=== PATIENT | female | born 1970 | race Caucasian/White ===

== ENCOUNTER 2019-09-23 13:19 | Outpatient (CLI) | payer OTHER, SELFPAY ==
--- NOTE | ~2019-09-23 | US_ITS ---
. EXAMINATION: US FNA w image guidance DATE: 09/23/2019 14:14 INDICATION: Nontoxic single thyroid nodule. TECHNIQUE: The procedure and its benefits, risks, and benefits were discussed with the patient. Risks specifical ly discussed included bleeding. The patient verbalized understanding of the risks and agreed to proce ed. The neck was prepped and draped in the usual sterile manner. 1% lidocaine was used for local ane sthesia. 5 passes were made with a 25G needle into the lesion. Appropriate needle location was docu mented with continuous sonographic guidance. There were no immediate complications. The patient unde rstood to call the ordering physician for results after a week and a half and verbalized that underst anding. FINDINGS: Grayscale ultrasound images demonstrate needles advanced into a 2.4 cm right thyroid nodule for biops y. IMPRESSION: 1. Ultrasound-guided fine needle aspiration of a right thyroid nodule. Reviewed, dictated and finalized at location A. OF MUSIC
== END 2019-09-23 13:20 | disposition home or self-care (01) ==
PROVIDERS: PCP Physician Assistant; Visit Provider Internal Medicine Endocrinology, Diabetes & Metabolism
DX: E04.1 Nontoxic single thyroid nodule (principal)
CPT/HCPCS: 10005; 88108; 88173; 88305

== ENCOUNTER 2019-11-01 07:14 | Observation (INO) | payer OTHER, SELFPAY ==
[2019-11-01] VITALS (13 sets, daily range): BP systolic 98–139; BP diastolic 71–95; PULSE 60–82; RESP 16–22; TEMP 36.4–36.7; O2SAT 94–100; BMI 32.2
--- NOTE | ~2019-11-01 | CT_ITS ---
EXAMINATION: CTA chest DATE: 11/01/2019 08:48 INDICATION: Chest pain. Shortness of breath. TECHNIQUE: Computed tomography angiography (CTA) of the chest was performed with 100 mL Omnipaque-350 intravenous contrast timed to evaluate the pulmonary arteries. Coronal maximum intensity projection 3D-reconstructions were created by the technologist. Automated exposure control and iterative reconst ruction technique were employed. The dose-length product was 506.12 mGy-cm. COMPARISON: CT abdomen and pelvis 08/31/2016 FINDINGS: There is mild emphysema. There are scattered areas of mild atelectasis in the lungs. Calcif ied pulmonary nodules and calcified hilar lymph nodes are consistent with old granulomatous disease. There is an 8 mm nodule in left upper lobe, stable from 08/31/2016. There is a 6 mm nodule in lingula, stable from 08/31/2016. There is a 5 mm nodule in right upper lobe not included on the prior CT. No p leural effusion. The heart size is normal. No pericardial effusion. There is no pulmonary embolus. Th ere is ectasia of ascending aorta measuring 4.4 cm. There is noncalcified right hilar lymphadenopathy measuring up to 1.9 x 1.6 cm. There is mild thoracic spondylosis. IMPRESSION: 1. No pulmonary embolus. 2. Ectasia of ascending aorta measuring 4.4 cm. 3. Pulmonary nodules, likely benign. 4. Mild emphysema. 5. Mild right hilar lymphadenopathy, likely reactive. Reviewed, dictated and finalized at location A.
--- NOTE | ~2019-11-01 | XR_ITS ---
EXAMINATION: XR chest 2V EXAM DATE: 11/01/2019 07:49 INDICATION: Chest pain mid to left-sided. Posterior chest pain and neck pain. TECHNIQUE: Frontal and lateral projections of the chest obtained and reviewed. There is no prior maia dy for comparison. FINDINGS: Some scattered linear right lung opacities appearance most consistent with atelectasis. No confluent consolidation, pneumothorax or pleural effusion suspected. Cardiomediastinal silhouette is normal. There are mild bony degenerative changes. IMPRESSION: Scattered linear right lung opacities most consistent with atelectasis. Reviewed, dictated and finalized at location B. IMPRESSION: Scattered linear right lung opacities most consistent with atelecta sis.
--- NOTE | 2019-11-01 07:25 | ECG_ITS ---
Measurements Intervals [place] Rate: 78 P: 45 CO: 169 QRS: -31 QRSD: 85 T: 32 QT: 379 QTc: 434 Interpretive Statements SINUS RHYTHM MARKED LEFT AXIS DEVIATION POOR R WAVE PROGRESSION, ANTERIOR LEADS BORDERLINE ST-T WAVE ABNORMALITY- DIFFUSE LEADS BASELINE ARTIFACT- I, III, AVL, AVF BORDERLINE ECG Electronically Signed On 11-01-2019 7:41:21 CDT by Lucas Ramirez D.O.
[2019-11-01 07:33] LABS: Basophils Absolute Auto 0.1 K/mm3 (0.0-0.1); Basophils Percent Auto 0.5 % (0.2-1.2); Eosinophils Percent Auto 0.1 % (0-4.4); Immature Granulocyte Absolute 0.02 K/mm3 (0.00-0.031); Immature Granulocyte Percent A 0.2 % (0-0.5); Lymphocytes Percent Auto 29.1 % (18.3-44.2); Mean Corpuscular HGB Conc 31.8 g/dl (32-36); Mean Corpuscular Hemoglobin 30.4 pg (26-34); Mean Corpuscular Volume 95.4 fl (80-100); Mean Platelet Volume 9.7 fl (7.4-10.4); Monocytes Absolute Auto 0.9 K/mm3 (0.1-0.6); Monocytes Percent Auto 7.4 % (2.6-8.5); Neutrophils Absolute Auto 7.3 K/mm3 (1.3-6.7); Neutrophils Percent Auto 62.7 % (45.5-73.1); Platelet Count Result 329 k/mm3 (150-375); Red Blood Count 4.61 M/mm3 (4.2-5.4); Red Cell Distribution Width 13.6 % (11.5-14.5); White Blood Count 11.7 K/mm3 (4.5-10.0)
[2019-11-01] MEDS: ASPIRIN 81 MG CHEWABLE TABLET 324 MG PO (07:35)
--- NOTE | 2019-11-01 07:35 | ED.CHESTPAIN ---
HPI - Chest Pain General Chief Complaint: Chest Pain Stated Complaint: CP Time Seen by Provider: 11/01/19 07:23 Source: patient Mode of arrival: ambulatory Limitations: no limitations History of Present Illness HPI narrative: 48 yo female smoker who presents with c/o chest heaviness. Patient states that she develop chest heaviness across her upper chest 1 hour ago. She states she tried to lay back down but her pain was too severe. She also reports her pain has moved to her neck and across her shoulder blade. Patient states it hurts to take a breath and she is having sob. She reports chronic cough due to her being a smoker. She denies nausea, vomiting , fever, diaphoresis or dizziness. She denies prior cardiac history . She was evaluated by a erector operator 5 years ago for a clot in her spleen. MD complaint: chest heaviness Onset (ago): hour(s) Timing of current episode: constant and still present Prior episodes: No Onset: awoke with symptoms Pain location: parasternal Pain radiation: neck Severity: severe Pain scale (0-10): 8 Quality: heaviness Relieving factors: nothing Exacerbating factors: inspiration Risk Factors Coronary artery disease risk factors: smoking history Related Data Home Medications Medication Instructions Recorded Confirmed cholecalciferol (vitamin D3) 25 25 mcg PO DAILY 09/18/19 11/01/19 mcg (1,000 unit) chewable tablet cyanocobalamin (vitamin B-12) 1,000 mcg PO DAILY 09/18/19 11/01/19 1,000 mcg capsule Alive Women's Gummy Vitamin 1 tablet PO DAILY 11/01/19 11/01/19 elderberry fruit and flower 1 cap PO DAILY 11/01/19 11/01/19 flaxseed oil-omega 3,6,9 1 cap PO DAILY 11/01/19 11/01/19 Allergies Allergy/AdvReac Type Severity Reaction Status Date / Time shellfish derived Allergy Mild Nausea Verified 11/01/19 11:29 hydrocodone [From Vicodin] AdvReac Mild Nausea Verified 11/01/19 11:30 morphine AdvReac Mild Nausea Verified 11/01/19 11:28 Review of Systems Review of Systems: All systems reviewed & are unremarkable except as noted in HPI and below Constitutional: Constitutional: Denies chills, Denies fever(s) and Denies weakness ENT: Denies nasal congestion and Denies sore throat Cardiovascular: Cardiovascular: Reports chest pain, Denies rapid heart rate and Denies radiating jaw, neck or arm pain Gastrointestinal: Gastrointestinal: Denies abdominal pain, Denies diarrhea, Denies nausea and Denies vomiting Musculoskeletal: Musculoskeletal: Reports back pain PMFSH Past Medical History Medical History Blood clot in abdominal vein section wound complications Exploratory laparotomy scar Surgical History Surgical History H/O: hysterectomy History of tubal ligation Social History Social History Smoking packs per day: 1 Smoking cigarettes per day: 20.0 Years smoked: 35 Smoking pack-years: 35.00 Smoking status: Current every day smoker Tobacco type: cigarettes Second hand tobacco smoke exposure: Yes Alcohol intake: current Substance use: never Substance use type: does not use Gender identity (if verbalized by the patient): Female Spiritual care concerns: No Agree to blood products: Yes Exam Narrative: Exam Narrative: GENERAL: Well-appearing, well-nourished, and in no acute distress. HEAD: Normocephalic, atraumatic EYES: PERRLA and EOMI, conjunctiva clear without discharge THROAT:Mucous membranes moist, Oropharynx normal without erythema, exudate, peritonsillar swelling or fluctuance NECK: Supple, without lymphadenopathy or mass RESPIRATORY: No respiratory distress, Airway patent, Respirations non-labored, Clear to auscultation without rales, rhonchi or wheeze HEART: Regular rate and rhythm. No murmur heard. Normal peripheral pulses. ABDOMEN: Soft, nontender, nondistended, rudy
--- NOTE | 2019-11-01 07:43 | PC.NURSE ---
Called lab for d-dimer add on.
[2019-11-01 07:44] LABS: Blood Urea Nitrogen 12 mg/dL (7-17); Calcium 8.8 mg/dL (8.4-10.2); Carbon Dioxide 28 mmol/L (22-30); Chloride 106 mmol/L (98-107); Estimated CRCL calculation 112 ml/min; Estimated Glomerular Filt Rate > 60; Glucose 126 mg/dL (65-105); INR 0.9; Prothrombin Time 11.5 Seconds (11.1-14.7); Sodium 139 mmol/L (137-145)
[2019-11-01 07:47] LABS: D Dimer 0.46 ug/mL (<0.48)
[2019-11-01] MEDS: NITROGLYCERIN SL 0.4 MG TABLET SUBLINGUAL (07:50)
--- NOTE | 2019-11-01 07:55 | PC.NURSE ---
Patient rates pain 5/10 after first dose of nitro. Given second dose 0.4 mg SL at this time. BP 117/73.
[2019-11-01 07:56] LABS: Troponin I < 0.012 ng/mL (0.000-0.034)
--- NOTE | 2019-11-01 08:00 | PC.NURSE ---
Patient reports pain 5/10 after second dose of nitro. 3rd dose given at this time (0.4 mg given SL). CO 82 RR 25 pulse ox 96% and BP 113/75.
[2019-11-01] MEDS: ALBUTEROL SULFATE NEB 2.5 MG/0.5 ML INH 5 MG INHALATION (09:58)
[2019-11-01] MEDS: IPRATROPIUM BR 0.02% INH SOLN 0.5 MG/2.5 ML VIAL INHALATION (09:58)
--- NOTE | 2019-11-01 11:00 | PC.NURSE ---
This patient, Nidia Clinton, was admitted to IMU Room 203-01. Patient/family oriented to hospital policies and general routines including ID bracelet, bed and alarms, visiting hours, pain management, procedures, bathroom and other care routines, personal items, smoking policy, room service/diet, and visiting hours. Valuables list has been completed. Information on how to activate the Rapid Response Team has been discussed. Patient/Family are encouraged to report perceived risks to care and to ask questions if they do not understand what they are told or what they should do.
[2019-11-01 11:09] LABS: Troponin I < 0.012 ng/mL (0.000-0.034)
--- NOTE | 2019-11-01 13:18 | PM.CNCAR ---
Assessment and Plan Additional Plan 48-year-old lady with history of abrupt onset of chest pain this morning has a pleuritic quality to it. There is no ECG evidence to suggest acute pericarditis. Her ECG and biomarkers thus far are negative for evidence of acute coronary syndrome. The 3rd troponin level is pending She has a history of some sort of hypercoagulable disorder records of that are of not available here at [facility] evaluation was not conducted here. This makes it even more important for this lady that she stopped cigarette smoking If her 3rd troponin level is negative she can be discharged for follow-up with her PCP Sherwin Vega MD [facility] History of Present Illness History of Present Illness Consult date/time: Date of service: 11/01/19 13:18 Consult reason: chest pain Reason For Visit: chest pain/emphysema Narrative: This is a 48-year-old female who I have not seen previously and I am asked to see today at the request of the hospitalist's because of chest pain. The patient does not have any prior history of known cardiac problems and began to abruptly experience chest pain this morning while she was at home and her was a getting ready to go to work. She states that she suddenly noted the onset of relatively severe pain and was in the precordial region to the right side of midline the pain was an aching sensation that was 8 to 9/10 on intensity scale and was relatively alarming to her because of its abrupt onset. She then started to noticed a sense of some sweatiness and so her was awakened and she was brought to the emergency room for evaluation. When the pain was relatively severe she did notice that it would improve if she would sit in the upright position in lean forward. It was made worse by deep breathing or coughing. The discomfort seemed eager to gradually subside on its own she was given series of nitroglycerin tablets in the emergency room which she does not think really had much effect on the symptom that she could recall her electrocardiogram did not show any changes of acute ischemia or injury. Troponin levels were negative. Her 2nd troponin sample which was done appear in the intermediate care unit is also normal. In this setting of seeing her in consultation. The patient does state that she was evaluated by a breakfast manager in the [facility] in [place] a few years ago after she had some significant left upper quadrant abdominal pain. 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 This triggered a hematology evaluation and she does indicate that she was found to have some sort of hypercoagulable disorder but she can't remember the specific diagnosis. She did state of course that her detective sergeant told her that she should discontinue cigarette smoking but she has not done that. She said that for about 3 months after that event she was on Xarelto for systemic anticoagulation and then that was discontinued. Her cardiac evaluation consisted at least of an echocardiogram she can't remember anything else that might of been done which was told that her heart appeared to otherwise be is stable without any evidence of separate cardiac problems. 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 Review of Systems Constitutional: Constitutional: Reports no additional constitutional complaints Eyes: Eyes: Reports no additional eye complaints Cardiovascular: Cardiovascular: Reports as per HPI Respiratory: Respiratory: Reports no additional respiratory complaints Gastrointestinal: Gastrointestinal: Reports no additional gastrointestinal complaints Musculoskeletal: Musculoskeletal:
[2019-11-01 13:53] LABS: Alanine Aminotransferase 14 U/L (4-35); Alkaline Phosphatase 53 U/L (38-126); Aspartate Amino Transferase 21 U/L (14-36); Bilirubin,Total 0.5 mg/dL (0.2-1.3)
[2019-11-01 14:05] LABS: Troponin I < 0.012 ng/mL (0.000-0.034)
--- NOTE | 2019-11-01 14:29 | PM.IMHP ---
H&P: HPI History of Present Illness Chief complaint: chest pain/emphysema Narrative: Date of visit 10-31 raya Clinton is a 48 year old female smoker who states that shortly after rising approximately 6:30 a.m. developed substernal achy pressure sensation that is to her back across her shoulders and neck. Pain seems somewhat better when she leaned forward at times will rising to the hospital and worsens with deep inspiration. To me she related that she had no associated symptoms of nausea are shortness of breath but apparently told the ER P that she had had shortness of breath. She does smoke about a pack cigarettes a day and has over 30 pack year history. No other risk factors to her knowledge and is adopted so she is not sure about her biologic parents medical history. 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 Review of Systems Review of Systems: Narrative: Constitutional with steady appetite good Eye no double vision or scotoma Mouth no pharyngitis or laryngitis Pulmonary no increased shortness breath wheezing or cough CV as per present illness no palpitations or pedal edema GI no melena hematochezia. She has had a history of reflux but states at present illness with totally different Extremities without edema Neuro alert pleasant cooperative no focal deficits Integument no skin breakdown or rashes PMFSH Past Medical History Medical History Blood clot in abdominal vein section wound complications Exploratory laparotomy scar Surgical History Surgical History H/O: hysterectomy History of tubal ligation Social History Social History Smoking packs per day: 1 Smoking cigarettes per day: 20.0 Years smoked: 35 Smoking pack-years: 35.00 Smoking status: Current every day smoker Tobacco type: cigarettes Second hand tobacco smoke exposure: Yes Alcohol intake: current Substance use: never Substance use type: does not use Gender identity (if verbalized by the patient): Female Spiritual care concerns: No Agree to blood products: Yes Meds Home Medications and Allergies Home Medications Medication Instructions Recorded Confirmed Type cholecalciferol (vitamin D3) 25 25 mcg PO DAILY 09/18/19 11/01/19 History mcg (1,000 unit) chewable tablet cyanocobalamin (vitamin B-12) 1,000 mcg PO DAILY 09/18/19 11/01/19 History 1,000 mcg capsule elderberry fruit and flower 1 cap PO DAILY 11/01/19 11/01/19 History flaxseed oil-omega 3,6,9 1 cap PO DAILY 11/01/19 11/01/19 History [id number] 1 tablet PO DAILY 11/01/19 11/01/19 History [Alive Women's Gummy Vitamin] Allergies Allergy/AdvReac Type Severity Reaction Status Date / Time shellfish derived Allergy Mild Nausea Verified 11/01/19 11:29 hydrocodone [From Vicodin] AdvReac Mild Nausea Verified 11/01/19 11:30 morphine AdvReac Mild Nausea Verified 11/01/19 11:28 Vital Signs Vital Signs - 24 hr 11/01/19 07:17 11/01/19 07:27 11/01/19 07:50 Temperature 36.4 C Pulse Rate 77 73 69 Respiratory Rate 18 21 H Blood Pressure 139/95 H 123/91 H Pulse Oximetry 97 98 11/01/19 07:54 11/01/19 08:07 11/01/19 08:52 Temperature Pulse Rate 78 82 65 Respiratory Rate 22 H 18 18 Blood Pressure 117/73 106/71 98/75 L Pulse Oximetry 96 96 100 11/01/19 09:59 11/01/19 10:05 11/01/19 10:49 Temperature Pulse Rate 65 69 74 Respiratory Rate 20 22 H 16 Blood Pressure 114/81 Pulse Oximetry 94 11/01/19 11:35 11/01/19 12:00 11/01/19 13:33 Temperature 36.7 C Pulse Rate 60 72 68 Respiratory Rate 20 18 Blood Pressure 127/75 Pulse Oximetry 99 96 Exam Narrative: Exam Narrative: Blood pressure 126/74 pulse 60 and regular afebril
--- NOTE | 2019-11-01 18:09 | PM.DS ---
DS: Diagnosis Admitting Diagnosis Admitting Diagnosis: Chest pain, unspecified Discharge Diagnosis (1) Chest pain: Qualifiers: Chest pain type: unspecified Qualified Code(s): R07.9 - Chest pain, unspecified Code(s): R07.9 - Chest pain, unspecified Status: Acute Assessment and Plan: The chest pressure is suggestive of anginal pain but the pain way was long-lasting and not relieved with nitroglycerin. And also worsened with deep inspiration and alleviated somewhat with leaning forward but no evidence of pericarditis on EKG. Was encouraged to rest and use ibuprofen 2-400 mg 3 to 4 times a day Follow-up with primary care and if symptoms persist ,echo and possible stress testing Seen by cardiology who felt that was low probability of any ischemic chest pain with her history. Troponins were negative x3 CTA no emboli with mild emphysema in 3 5-8 mm nodules that were essentially unchanged from CT scan of 2017 (2) Emphysema lung: Qualifiers: Emphysema type: unspecified Qualified Code(s): J43.9 - Emphysema, unspecified Code(s): J43.9 - Emphysema, unspecified Status: Acute Assessment and Plan: Seen on CT scan. Encouraged to stop smoking (3) Smoker: Code(s): F17.200 - Nicotine dependence, unspecified, uncomplicated Status: Acute Assessment and Plan: As above especially with her previous thrombus encouraged her to stop smoking. DS: Summary Hospital Course Hospital Course: 48-year-old white female who shortly after arising in the morning developed substernal pressure sensation radiated to her back and her neck. Will consider her who brought her to the emergency room for evaluation. She notice it when she leaned forward pain was better and aggravated by deep inspiration. To given nitroglycerin in the emergency room without relief. EKG showed nonspecific changes and troponins were negative x3. CTA of the chest showed no dissection or pulmonary emboli. She was discharged with a presumptive diagnosis of possible mild pericarditis with her symptomatology as such but no findings on EKG. She is instructed use ibuprofen 2-400 mg p.o. 4 times a day and follow-up with her primary care for possible echo and are stress test as symptoms persisted or recurred Time Spent with Patient Time attestation: Total time spent providing and/or coordinating discharge services: 35 minutes Exam Narrative: Exam Narrative: Condition on discharge Blood pressure 126/74 pulse is 72 Lungs clear CV regular rate and rhythm no murmurs or rubs Abdomen is soft nontender no masses Extremities without edema distal pulses are 2+ Neuro alert no focal deficits DS: Data Data Completed and Pending Labs on day of discharge: Labs from last 24 hours 11/01/19 11/01/19 11/01/19 13:25 13:25 10:36 WBC RBC Hgb Hct MCV MCH MCHC RDW Plt Count MPV Immature Gran % (Auto) Neut % (Auto) Lymph % (Auto) [place] % (Auto) Eos % (Auto) Baso % (Auto) Lymph # (Auto) [place] # (Auto) Eos # (Auto) Baso # (Auto) Abs Immat Gran (auto) Absolute Neuts (auto) Absolute Nucleated RBC Nucleated RBC % PT INR APTT D-Dimer Sodium Potassium Chloride Carbon Dioxide BUN Creatinine Estim Creat Clear Calc Estimated GFR Glucose Calcium Total Bilirubin 0.5 Direct Bilirubin 0.0 AST 21 ALT 14 Alkaline Phosphatase 53 Troponin I < 0.012 < 0.012 Total Protein 7.0 Albumin 4.0 11/01/19 11/01/19 11/01/19 07:28 07:28 07:28 WBC 11.7 H RBC 4.61 Hgb 14.0 Hct 44.0 MCV 95.4 MCH 30.4 MCHC 31.8 L RDW 13.6 Plt Count 329 MPV 9.7 Immature Gran % (Auto) 0.2 Neut % (Auto) 62.7 Lymph % (Auto) 29.1 [place] % (Auto) 7.4 Eos % (Auto) 0.1 Baso % (Auto) 0.5 Lymph # (Auto) 3.40 H [place] # (Auto) 0.9 H Eos # (Auto) 0.0
== END 2019-11-01 16:40 | disposition home or self-care (01) ==
LOC: ANHED 10:18 → ANHIMU 11:04
PROVIDERS: Admitting Provider Internal Medicine; Emergency Provider General Practice; PCP Physician Assistant; Visit Provider Internal Medicine
DX: R07.9 Chest pain, unspecified (principal); J43.9 Emphysema, unspecified; F17.210 Nicotine dependence, cigarettes, uncomplicated
CPT/HCPCS: 36415; 71046; 71275; 80048; 80076; 84484; 85025; 85380; 85610; 85730; 93005; 94640; 99285; A9270; G0378; Q9967

== ENCOUNTER → 2020-08-19 10:53 | Outpatient (CLI) | payer OTHER, SELFPAY ==
--- NOTE | ~2020-08-19 | MM_ITS ---
EXAMINATION: MM screening [facility] BI w nash HISTORY: Screening TECHNIQUE: Craniocaudal and mediolateral oblique 3-D tomosynthesis images were obtained and synthetic 2-D images were generated. CAD analysis was submitted and interpreted. COMPARISON: Comparison to multiple prior studies sequentially, with oldest reviewed study dated 12/2015. BREAST PARENCHYMAL COMPOSITION: Breast composed of scattered areas of fibroglandular density. FINDINGS: There are developing asymmetries in the upper outer quadrant of the right breast and latera l aspect of the left breast. There are no suspicious calcifications. IMPRESSION: 1. Developing bilateral breast asymmetries. 2. Additional mammographic views and possible breast ultrasound are recommended. BI-RADS Category 0: Incomplete: Needs additional imaging evaluation. Reviewed, dictated and finalized at location A. PUMPER IMPRESSION: 1. Developing bilateral breast asymmetries. 2. Additional mammographic views and possible breast ultrasound are recommended . BI-RADS Category 0: Incomplete: Needs additional imaging evaluation.
== END ==
PROVIDERS: PCP Physician Assistant; Visit Provider Nurse Practitioner
DX: Z12.31 Encounter for screening mammogram for malignant neoplasm of breast (principal); R92.8 Other abnormal and inconclusive findings on diagnostic imaging of breast
CPT/HCPCS: 77063; 77067

== ENCOUNTER → 2020-09-09 08:18 | Outpatient (CLI) | payer OTHER, SELFPAY ==
--- NOTE | ~2020-09-09 | MMUS_ITS ---
EXAMINATION: MM diagnostic mammo BI, US breast BI limited HISTORY: Developing bilateral breast mammographic asymmetries reported on 08/19/2020 bilateral digita l screening mammogram examination TECHNIQUE: Additional 3-D tomosynthesis images of both breasts were performed and synthetic 2-D image s were generated. CAD analysis was submitted and interpreted. High resolution right upper outer quadr ant breast ultrasound and left upper outer and lower-outer quadrants breast ultrasound was performed. COMPARISON: 08/19/2020 bilateral digital screening mammogram FINDINGS: MAMMOGRAPHIC FINDINGS: Probable bilateral small benign appearing circumscribed intramammary lymph nodes. No suspicious mass or architectural distortion, malignant calcification, skin thickening or retractio n is evident. ULTRASOUND: No suspicious mass or shadowing is evident in the upper outer quadrant of the right breast or lateral half left breast. IMPRESSION: 1. No mammographic evidence of malignancy 2. Routine annual mammographic screening is recommended. BI-RADS Category 2: Benign finding(s). Reviewed, dictated and finalized at location A. 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 No mammographic evidence of malignancy 2. Routine annual mammographic screening is recommended. BI-RADS Category 2: Benign finding(s).
== END ==
PROVIDERS: Visit Provider Obstetrics & Gynecology Gynecology
DX: R92.8 Other abnormal and inconclusive findings on diagnostic imaging of breast (principal)
CPT/HCPCS: 76642; 77066

== ENCOUNTER → 2021-09-11 09:06 | Outpatient (CLI) | payer OTHER, SELFPAY ==
--- NOTE | ~2021-09-11 | MM_ITS ---
EXAMINATION: MM screening [facility] BI w nash HISTORY: Screening mammogram TECHNIQUE: Craniocaudal and mediolateral oblique 3-D tomosynthesis images were obtained and synthetic 2-D images were generated. CAD analysis was submitted and interpreted. COMPARISON: 09/09/2020, 08/19/2020, 08/12/2019 BREAST PARENCHYMAL COMPOSITION: There are scattered areas of fibroglandular density. FINDINGS: There is no evidence of suspicious mass, calcification, or architectural distortion to sugg est malignancy in either breast. There has been no suspicious interval change. IMPRESSION: 1. No mammographic evidence of malignancy. 2. Recommend routine screening mammography in one year. BI-RADS Category 1: Negative Reviewed, dictated and finalized at location A. [employer]
--- NOTE | ~2021-09-11 | DEXA_ITS ---
Bone Density Report Name: JOY MOSQUERA Age: 50 Sex: Female Ethnicity: White Date of : 1970 Indication: postmenopausal; screening for osteoporosis; hysterectomy; Referring Provider: Hermann, Jenifer Study: Bone densitometry was performed. Exam Date: September 11, 2021 Accession number: [id number] Bone Density: Region BMD T-score Z-score Classification AP Spine (L1-L4) 1.025 -0.2 0.6 Normal Femoral Neck (Left) 0.732 -1.1 -0.2 Osteopenia Total Hip (Left) 1.052 0.9 1.4 Normal Femoral Neck (Right) 0.848 0.0 0.8 Normal Total Hip (Right) 1.033 0.7 1.3 Normal Total Hip Mean 1.043 0.8 1.4 Normal World Health Organization criteria for BMD impression classify patients as: Normal (T-score at or above -1.0), Osteopenia (T-score between -1.0 and -2.5), or Osteoporosis (T-score at or below -2.5). 10-year Fracture Risk(1): Major Osteoporotic Fracture 4.4% Hip Fracture 0.4% Reported Risk Factors: [place] (), Neck BMD=0.732, BMI=32.7, smoking (1) FRAX(R) Version 3.08. Fracture probability calculated for an untreated patient. Fracture probability may be lower if the patient has received treatment. Clinical Information Provided by Patient: Smokes Has used the following medications: Vitamin D Has the following medical conditions: Hysterectomy Patient maximum height was 65.5 Menopause Age: 34 Drinks caffeinated beverages Onset of menses at age 10 Number of children 2 Impression: The patient has low bone mass, based on the Left Femoral Neck T-score. The patient has an estimated ten-year risk of hip fracture of 0.4% and an estimated ten-year risk of major fracture of 4.4%, based on the WHO FRAX algorithm. The patient has risk factors, including: smoking. Discussion: BONE DENSITY IS LOW AT ONE OR MORE SKELETAL SITES. This patient's lowest T-score is low at one or more skeletal sites. It meets the World Health Organization's (WHO) criteria for ?low bone mass? (T-score between -1.0 and -2.5). The patient's 10-year risk of fracture as calculated by FRAX is less than the threshold where pharmacological therapy is recommended by the National Osteoporosis Foundation (NOF). However, all treatment decisions require clinical judgment and consideration of individual patient factors, including patient preferences, comorbidities, previous drug use, risk factors not captured in the FRAX model (e.g., frailty, falls, vitamin D deficiency, increased bone turnover, interval significant decline in bone density) and possible under or overestimation of fracture risk by FRAX. The patient should follow a healthful lifestyle (good nutrition with adequate calcium and vitamin D, and appropriate weight-bearing exercise). Follow-Up: Consider repeating this study in 2 to 3 years to reassess this patient's status,
== END ==
PROVIDERS: PCP Physician Assistant; Visit Provider Nurse Practitioner
DX: Z12.31 Encounter for screening mammogram for malignant neoplasm of breast (principal); Z13.820 Encounter for screening for osteoporosis; M85.852 Other specified disorders of bone density and structure, left thigh
CPT/HCPCS: 77063; 77067; 77080

== ENCOUNTER → 2021-09-13 07:53 | Outpatient (CLI) | payer OTHER, SELFPAY ==
--- NOTE | ~2021-09-13 | CT_ITS ---
EXAMINATION: CT sinus wo con DATE: 09/13/2021 08:14 INDICATION: Chronic recurrent sinusitis TECHNIQUE: Computed tomography (CT) of the paranasal sinuses was performed without intravenous contra st. The dose-length product was 271.16 mGy-cm. Automated exposure control and iterative reconstructio n technique were employed. COMPARISON: None FINDINGS: There is mucosal thickening of the ethmoid sinuses. No air-fluid levels. No significant muc operiosteal reaction. The ostiomeatal units are patent. Mastoids are pneumatized. IMPRESSION: 1. Mild ethmoid sinus disease. Reviewed, dictated and finalized at location B. NESS SUPPORT ASSOCIATE
== END ==
PROVIDERS: PCP Physician Assistant; Visit Provider Physician Assistant
DX: J32.2 Chronic ethmoidal sinusitis (principal)
CPT/HCPCS: 70486

== ENCOUNTER → 2022-09-12 11:42 | Outpatient (CLI) | payer OTHER, SELFPAY ==
--- NOTE | ~2022-09-12 | MM_ITS ---
EXAMINATION: MM screening zackary BI w nash HISTORY: Screening mammogram TECHNIQUE: Craniocaudal and mediolateral oblique 3-D tomosynthesis images were obtained and synthetic 2-D images were generated. CAD analysis was submitted and interpreted. COMPARISON: 09/11/2021 bilateral screening mammogram: 09/09/2020 diagnostic bilateral mammogram and [place] bilateral breast ultrasound 08/19/2020, 08/12/2019 bilateral screening mammogram examinations BREAST PARENCHYMAL COMPOSITION: There are scattered areas of fibroglandular density. FINDINGS: Right breast: There is an approximately 6.9 mm possible new mass in the posterior mid to up per outer right breast; diagnostic right mammogram and right breast ultrasound examination are recomm ended. Left breast: There is no evidence of suspicious mass, calcification, or architectural distortion to s uggest malignancy in the left breast. There has been no suspicious interval change. IMPRESSION: 1. Possible approximately new 6.9 mm mass, posterior mid to upper right breast 2. Diagnostic right mammogram and right breast ultrasound examination are recommended BI-RADS Category 0: Incomplete: Needs additional imaging evaluation. Reviewed, dictated and finalized at location A. COIL CLEANER IMPRESSION: 1. Possible approximately new 6.9 mm mass, posterior mid to upper right breast 2. Diagnostic right mammogram and right breast ultrasound examination are recom mended BI-RADS Category 0: Incomplete: Needs additional imaging evaluation.
== END ==
PROVIDERS: PCP Physician Assistant; Visit Provider Nurse Practitioner
DX: Z12.31 Encounter for screening mammogram for malignant neoplasm of breast (principal); R92.8 Other abnormal and inconclusive findings on diagnostic imaging of breast
CPT/HCPCS: 77063; 77067

== ENCOUNTER → 2022-09-21 11:29 | Outpatient (CLI) | payer OTHER, SELFPAY ==
--- NOTE | ~2022-09-21 | MMUS_ITS ---
EXAMINATION: MM diagnostic zackary RT w nash, US breast RT limited HISTORY: Follow-up right breast mass TECHNIQUE: Additional 3-D tomosynthesis images of the right breast were performed and synthetic 2-D i mages were generated. CAD analysis was submitted and interpreted. High resolution Limited right breas t ultrasound was performed. COMPARISON: Comparison to multiple prior studies sequentially, with oldest reviewed study dated 07/21. BREAST PARENCHYMAL COMPOSITION: Breast composed of scattered areas of fibroglandular density FINDINGS: MAMMOGRAPHIC FINDINGS: Masses in the upper outer quadrant of the right breast posteriorly have central lucency with spot com pression views, most likely intramammary lymph nodes. No suspicious calcifications or architectural d istortion. ULTRASOUND: Limited right breast ultrasound: At 9:00, 5 cm from the nipple, there is an 8 mm intramammary lymph n ode. No suspicious masses to suggest malignancy. This likely does not correspond to the mammographic finding. IMPRESSION: 1. Probable benign findings of the right breast. 2. Recommend 6 month follow-up diagnostic right mammogram and ultrasound. BI-RADS category 3, probably benign findings. Reviewed, dictated and finalized at location A. MUNITION SUPERVISOR IMPRESSION: 1. Probable benign findings of the right breast. 2. Recommend 6 month follow-up diagnostic right mammogram and ultrasound. BI-RADS category 3, probably benign findings.
== END ==
PROVIDERS: PCP Obstetrics & Gynecology Gynecology; Visit Provider Obstetrics & Gynecology Gynecology
DX: R92.8 Other abnormal and inconclusive findings on diagnostic imaging of breast (principal)
CPT/HCPCS: 76642; 77061; 77065; G0279

== ENCOUNTER → 2023-03-27 07:47 | Outpatient (CLI) | payer OTHER, SELFPAY ==
--- NOTE | ~2023-03-27 | MMUS_ITS ---
EXAMINATION: MM diagnostic zackary RT w nash, US breast RT limited HISTORY: Six-month follow-up for probably benign right breast masses TECHNIQUE: Craniocaudal, mediolateral, and mediolateral oblique 3-D tomosynthesis images of the breas ts were performed and synthetic 2-D images were generated. CAD analysis was submitted and interpreted . High resolution limited right breast ultrasound was performed. COMPARISON: 09/21/2022, 09/12/2022, 09/11/2021, 09/09/2020, 08/19/2020 BREAST PARENCHYMAL COMPOSITION: There are scattered areas of fibroglandular density. FINDINGS: MAMMOGRAPHIC FINDINGS: No suspicious mass, calcification, or architectural distortion are identified to suggest malignancy. There has been no suspicious interval change. Stable intramammary lymph nodes are present in the uppe r outer quadrant of the breast. ULTRASOUND: There is a benign intramammary lymph node at the 9:00 location 5 cm from the nipple. No suspicious cy stic or solid mass is identified. IMPRESSION: 1. No mammographic or sonographic evidence of malignancy. 2. Recommend routine screening mammography, due in September 2023. BI-RADS Category 2: Benign finding(s). Reviewed, dictated and finalized at location A. IMPRESSION: 1. No mammographic or sonographic evidence of malignancy. 2. Recommend routine screening mammography, due in September 2023. BI-RADS Category 2: Benign finding(s).
== END ==
PROVIDERS: PCP Obstetrics & Gynecology Gynecology; Visit Provider Obstetrics & Gynecology Gynecology
DX: R92.8 Other abnormal and inconclusive findings on diagnostic imaging of breast (principal)
CPT/HCPCS: 76642; 77061; 77065; G0279

== ENCOUNTER 2024-02-01 03:47 | Day surgery (SDC) | payer OTHER, SELFPAY ==
[2024-02-01] MEDS: LACTATED RINGERS 1,000 ML 150 ML IV CONT (06:47)
[2024-02-01 06:49] VITALS: BP 104/77; PULSE 68; RESP 18; TEMP 36.1; O2SAT 99
--- NOTE | 2024-02-01 07:27 | WPDANESEPPF ---
Anes - Initial Pre Proc Eval Procedure: Operation Date: 02/01/24 08:00 Proposed Procedures p Screening Colonoscopy - Danilo Mcfarland MD Date/Time: 02/01/24 07:27 Surgeon: Danilo Mcfarland MD Pre Op Diagnosis: neoplasm screening Patient Data Age: 53 Gender: F Height: 1.7 m Weight: 84 kg Last Vital Signs Temp 97 F L 02/01/24 06:49 Pulse 68 02/01/24 06:49 Resp 18 02/01/24 06:49 BP 104/77 02/01/24 06:49 Pulse Ox 99 02/01/24 06:49 O2 Del Method Room Air 02/01/24 06:49 Allergies Allergy/AdvReac Type Severity Reaction Status Date / Time shellfish derived Allergy Mild Nausea Verified 02/01/24 06:48 hydrocodone [From Vicodin] AdvReac Mild Nausea Verified 02/01/24 06:48 morphine AdvReac Mild Nausea Verified 02/01/24 06:48 Home Medications Medication Instructions Recorded Confirmed Type cholecalciferol (vitamin D3) 25 25 mcg PO DAILY 09/18/19 01/18/24 History mcg (1,000 unit) chewable tablet cyanocobalamin (vitamin B-12) 1,000 mcg PO DAILY 09/18/19 01/18/24 History 1,000 mcg capsule elderberry fruit 460 mg-elderberry 1 cap PO DAILY 11/01/19 01/18/24 History flower 115 mg capsule flaxseed oil 1,300 mg-omega 3,6,9 1 cap PO DAILY 11/01/19 01/18/24 History 845 mg-117 mg-117 mg capsule rlcwkonc-kceg-dvsrg acid 200 1 tablet PO DAILY 11/01/19 01/18/24 History mcg-herbal no.293 37.5 mg chewable tablet (Alive Women's Gummy Vitamin) ascorbic acid (vitamin C) 500 mg 500 mg PO DAILY 03/23/20 01/18/24 History capsule biotin 300 mcg tablet 500 mcg PO DAILY 03/23/20 01/18/24 History vitamin E 200 unit capsule 200 unit PO DAILY 03/23/20 01/18/24 History lutein 20 mg capsule 20 mg PO DAILY 01/18/24 01/18/24 History paroxetine HCl 10 mg tablet 10 mg PO DAILY 01/18/24 01/18/24 History rosuvastatin 5 mg tablet 5 mg PO DAILY 01/18/24 01/18/24 History Patient hx anesthesia problems: none Family hx anesthesia problems: none Results Review: All pre-operative results and documents have been reviewed as part of the pre-operative evaluation. [facility] Past Medical History Medical History (Updated 11/01/19 @ 10:18 by Balbina Mann MD) Blood clot in abdominal vein section wound complications Exploratory laparotomy scar Surgical History Surgical History H/O: hysterectomy History of tubal ligation Family History Family History Other Adopted Social History Social History Smoking packs per day: 1 Smoking cigarettes per day: 20.0 Years smoked: 40 Smoking pack-years: 40.00 Smoking status: Current every day smoker Tobacco type: cigarettes Second hand tobacco smoke exposure: Yes Alcohol intake: never Substance use: never Substance use type: does not use Living arrangements: with family Gender identity (if verbalized by the patient): Female Spiritual care concerns: No Agree to blood products: Yes Anes - Eval Final PreProcedure Day of Procedure 02/01/24 07:27 Patient weight: obese Heart: regular rate and rhythm Lungs: clear to auscultation Airway: Mallampati scale class II Neurological: alert and oriented Last oral intake: >/= 8 hours ASA classification: II Emergent: no Anesthetic plan: proceed Anesthesia type and monitoring: general GIVS and standard monitoring Results Review: All pre-operative results and documents have been reviewed as part of the pre-operative evaluation. Informed Consent: The patient's anesthetic plan and its attendant risks and benefits were discussed with the patient/family/POA. Questions were solicited and answers provided to the satisfaction of the patient/family/POA.
--- NOTE | 2024-02-01 07:47 | PM.HPGS ---
History of Present Illness History of Present Illness Consent: Risks, benefits, and alternatives have been discussed and questions answered. Patient agrees to proceed with procedure. Chief complaint: neoplasm screening Narrative: Nidia Clinton is a 53 year old female here for first screening colonoscopy Review of Systems Review of Systems: All systems reviewed & are unremarkable except as noted in HPI and below PMFSH Past Medical History Medical History (Updated 02/01/24 @ 07:48 by Danilo Mcfarland MD) Blood clot in abdominal vein section wound complications Colon cancer screening Exploratory laparotomy scar Surgical History Surgical History H/O: hysterectomy History of tubal ligation Family History Family History Other Adopted Social History Social History Smoking packs per day: 1 Smoking cigarettes per day: 20.0 Years smoked: 40 Smoking pack-years: 40.00 Smoking status: Current every day smoker Tobacco type: cigarettes Second hand tobacco smoke exposure: Yes Alcohol intake: never Substance use: never Substance use type: does not use Living arrangements: with family Gender identity (if verbalized by the patient): Female Spiritual care concerns: No Agree to blood products: Yes Meds Home Medications and Allergies Home Medications Medication Instructions Recorded Confirmed Type cholecalciferol (vitamin D3) 25 25 mcg PO DAILY 09/18/19 01/18/24 History mcg (1,000 unit) chewable tablet cyanocobalamin (vitamin B-12) 1,000 mcg PO DAILY 09/18/19 01/18/24 History 1,000 mcg capsule elderberry fruit 460 mg-elderberry 1 cap PO DAILY 11/01/19 01/18/24 History flower 115 mg capsule flaxseed oil 1,300 mg-omega 3,6,9 1 cap PO DAILY 11/01/19 01/18/24 History 845 mg-117 mg-117 mg capsule ouwholcn-rekt-ldtbm acid 200 1 tablet PO DAILY 11/01/19 01/18/24 History mcg-herbal no.293 37.5 mg chewable tablet (Alive Women's Gummy Vitamin) ascorbic acid (vitamin C) 500 mg 500 mg PO DAILY 03/23/20 01/18/24 History capsule biotin 300 mcg tablet 500 mcg PO DAILY 03/23/20 01/18/24 History vitamin E 200 unit capsule 200 unit PO DAILY 03/23/20 01/18/24 History lutein 20 mg capsule 20 mg PO DAILY 01/18/24 01/18/24 History paroxetine HCl 10 mg tablet 10 mg PO DAILY 01/18/24 01/18/24 History rosuvastatin 5 mg tablet 5 mg PO DAILY 01/18/24 01/18/24 History Allergies Allergy/AdvReac Type Severity Reaction Status Date / Time shellfish derived Allergy Mild Nausea Verified 02/01/24 06:48 hydrocodone [From Vicodin] AdvReac Mild Nausea Verified 02/01/24 06:48 morphine AdvReac Mild Nausea Verified 02/01/24 06:48 Vital Signs Vital Signs - 24 hr 02/01/24 06:49 Temperature 97 F L Pulse Rate 68 Respiratory Rate 18 Blood Pressure 104/77 Pulse Oximetry 99 Oxygen Delivery Room Air Exam Const: General: comfortable and no acute distress HENMT: Face/Nose/Sinus: Normal nares present Eyes: General: appearance normal, both eyes and all related structures Neck: Neck: no JVD Resp: Auscultation: clear to auscultation bilaterally Cardio: Rate: regular rate Rhythm: regular rhythm GI: Inspection: non-distended GI Palp: Yes Soft to palpation Skin: General skin exam: normal color Neuro: General: gait normal Speech: normal speech Extrem: General: normal to inspection Psych: Mental Status: mental status grossly normal Assessment and Plan Assessment and plan (1) Colon cancer screening: Code(s): Z12.11 - Encounter for screening for malignant neoplasm of colon Status: Acute Assessment and Plan: colonoscopy
[2024-02-01 08:12] VITALS: BP 90/60; PULSE 67; RESP 20; O2SAT 95
[2024-02-01 08:22] VITALS: BP 106/67; PULSE 60; RESP 20; O2SAT 99
[2024-02-01 08:32] VITALS: BP 110/72; PULSE 60; RESP 17; O2SAT 99
== END 2024-02-01 08:42 | disposition home or self-care (01) ==
PROVIDERS: PCP Physician Assistant; Referring Provider Obstetrics & Gynecology Gynecology; Visit Provider Internal Medicine Gastroenterology
PROC: 0DJD8ZZ Inspection of Lower Intestinal Tract, Via Natural or Artificial Opening Endoscopic (ICD-10-PCS; CPT 45378; principal; 2024-02-01 08:00)
DX: Z12.11 Encounter for screening for malignant neoplasm of colon (principal); D12.3 Benign neoplasm of transverse colon; D12.8 Benign neoplasm of rectum; D12.2 Benign neoplasm of ascending colon; K57.30 Diverticulosis of large intestine without perforation or abscess without bleeding; K64.8 Other hemorrhoids; F17.210 Nicotine dependence, cigarettes, uncomplicated; E66.9 Obesity, unspecified; Z68.29 Body mass index [BMI] 29.0-29.9, adult
CPT/HCPCS: 45385; 88305; J2001; J2704; J7120

== ENCOUNTER 2024-05-29 12:59 | Outpatient (CLI) | payer OTHER, SELFPAY ==
--- NOTE | ~2024-05-29 | MMUS_ITS ---
EXAMINATION: MM diagnostic zackary BI w nash, US breast RT limited HISTORY: Palpable right breast mass TECHNIQUE: Additional 3-D tomosynthesis images of the right breast were performed and synthetic 2-D i mages were generated. CAD analysis was submitted and interpreted. High resolution Limited right breas t ultrasound was performed. COMPARISON: Comparison to multiple prior studies sequentially, with oldest reviewed study dated 07/23. BREAST PARENCHYMAL COMPOSITION: Not dense: There are scattered areas of fibroglandular density. FINDINGS: MAMMOGRAPHIC FINDINGS: There are no suspicious masses, calcifications or architectural distortion in the right breast to sug gest malignancy. There are normal lymph nodes in the upper outer quadrant of the right breast. ULTRASOUND: Limited right breast ultrasound: At 9:00, 5 cm from the nipple there is a normal-appearing 9 mm intra mammary lymph node. There are no suspicious masses to suggest malignancy. IMPRESSION: 1. No evidence for malignancy in the right breast. 2. Routine yearly screening mammogram and regular clinical breast examination are recommended. BI-RADS Category 2: Benign finding(s). Reviewed, dictated and finalized at location B. IMPRESSION: 1. No evidence for malignancy in the right breast. 2. Routine yearly screening mammogram and regular clinical breast examination a re recommended. BI-RADS Category 2: Benign finding(s).
== END 2024-05-29 13:00 | disposition home or self-care (01) ==
LOC: MICIMG 13:00
PROVIDERS: PCP Physician Assistant; Visit Provider Obstetrics & Gynecology Gynecology
DX: Z12.31 Encounter for screening mammogram for malignant neoplasm of breast (principal); N63.11 Unspecified lump in the right breast, upper outer quadrant
CPT/HCPCS: 76642; 77062; 77066; G0279

== ENCOUNTER 2024-07-26 08:24 | Outpatient (CLI) | payer OTHER, SELFPAY ==
--- NOTE | ~2024-07-26 | XR_ITS ---
XR lumbar spine 2-3V 07/26/2024 08:38 Indication: Low back pain Procedure: 3 views lumbar spine Comparison: No prior studies for comparison. Findings: Vertebral body heights are maintained. There is disc narrowing at L5-S1 and L4-5. There is facet hypertrophy of the mid and lower lumbar spine. There is levoscoliosis. Pedicles intact. Sacral foramen are symmetric. Impression: 1: Moderate lumbar spondylosis with levoscoliosis. Reviewed, dictated and finalized at location B. IFIED SURGICAL ASSISTANT Impression: 1: Moderate lumbar spondylosis with levoscoliosis.
== END 2024-07-26 08:25 | disposition home or self-care (01) ==
LOC: MICIMG 08:26
PROVIDERS: PCP Physician Assistant; Visit Provider Physician Assistant
DX: M43.06 Spondylolysis, lumbar region (principal); M41.86 Other forms of scoliosis, lumbar region
CPT/HCPCS: 72100

== ENCOUNTER 2025-05-03 10:58 | Inpatient (IN) | payer OTHER, SELFPAY ==
[2025-05-03] VITALS (15 sets, daily range): BP systolic 103–134; BP diastolic 57–99; PULSE 76–96; RESP 14–20; TEMP 37.2–39.2; O2SAT 96–100; BMI 27.4
--- NOTE | ~2025-05-03 | CT_ITS ---
Nidia Oz EXAMINATION: CT abdomen pelvis w con COMPARISON: None HISTORY: Abdominal pain TECHNIQUE: Axial images were obtained through the abdomen, pelvis post administration of IV contrast. Oral contrast was also administered. Coronal reconstruction images were obtained from the axial views. CT scan performed using dose optimization techniques including the following automated exposure control; adjustment of mA and/or kV; use of iterative reconstruction technique. Automatic exposure control was used to reduce radiation dose. Permanent radiation dose record is archived to PACS. FINDINGS: CT abdomen: LUNG BASES: Lung bases demonstrate calcified granulomas. LIVER: Mild hepatic steatosis. Mild intrahepatic biliary duct dilatation. The main portal vein is patent. SPLEEN: Unremarkable. KIDNEYS: Right Kidney: Unremarkable. No calculi. No hydronephrosis. Left Kidney: Unremarkable. No calculi. No hydronephrosis ADRENAL GLANDS: Unremarkable. PANCREAS: The distal pancreatic duct is dilated measuring 6 mm. The remaining pancreas appears unremarkable. GALLBLADDER/BILIARY: Cholelithiasis. The CBD is dilated measuring 1.9 cm tapering abruptly distally with mild hyperemia of the CBD suspected. STOMACH AND ESOPHAGUS: Visualized stomach and esophagus within normal limits. BOWEL/MESENTERY: Moderate fecal content, no colitis or diverticulitis. Appendix normal. Mesentery normal. No dilated small bowel loops. ADENOPATHY/RETROPERITONEUM: No lymphadenopathy. AORTA/VASCULATURE: Normal caliber aorta. FREE FLUID OR FREE AIR: No free fluid.. CT pelvis: SOLID ORGANS/REPRODUCTIVE: Uterus atrophic. No adnexal mass. BLADDER: Within normal limits. OSSEOUS STRUCTURES: No acute osseous abnormality.No suspicious lesions. OVERLYING SOFT TISSUES: Unremarkable. IMPRESSION: 1. Dilated biliary tree detailed above with distal stricture suspected. MRCP recommended Reviewed, dictated and finalized at location A. IMPRESSION: 1. Dilated biliary tree detailed above with distal stricture suspected. MRCP re commended
--- NOTE | ~2025-05-03 | US_ITS ---
EXAMINATION: US abdomen limited DATE: 05/03/2025 16:22 INDICATION: Right upper quadrant abdominal pain. Abnormal liver function tests. TECHNIQUE: Multiple grayscale and Doppler ultrasound images of the abdomen were obtained. COMPARISON: CT abdomen and pelvis 05/03/2025 FINDINGS: The pancreatic duct is mildly dilated. The liver is normal without focal lesion. There is normal flow in main portal vein. The common duct is dilated to 11 mm. The gallbladder is normal in size and contains sludge. Gallstones were visible in the gallbladder by CT. No gallbladder wall thickening or sonographic Floyd sign. IMPRESSION: 1. Dilated common duct and pancreatic duct. Consider MRCP or ERCP. 2. Cholelithiasis. Reviewed, dictated and finalized at location K.
--- NOTE | 2025-05-03 11:26 | ED.ABDPAIN ---
HPI - Abdominal Pain General Chief Complaint: Abdominal Pain Stated Complaint: chills, abd pain Time Seen by Provider: 05/03/25 11:23 Source: patient Mode of arrival: ambulatory Limitations: no limitations Related Data Home Medications ?Medication ?Instructions ?Recorded ?Confirmed ?Last Taken ?Type cholecalciferol (vitamin D3) 25 25 mcg PO DAILY 09/18/19 01/18/24 1 Day Ago History mcg (1,000 unit) chewable tablet ~10/31/19 cyanocobalamin (vitamin B-12) 1,000 mcg PO DAILY 09/18/19 01/18/24 1 Day Ago History 1,000 mcg capsule ~10/31/19 elderberry fruit 460 mg-elderberry 1 cap PO DAILY 11/01/19 01/18/24 1 Day Ago History flower 115 mg capsule ~10/31/19 flaxseed oil 1,300 mg-omega 3,6,9 1 cap PO DAILY 11/01/19 01/18/24 1 Day Ago History 845 mg-117 mg-117 mg capsule ~10/31/19 cycsybfu-molu-hplbo acid 200 1 tablet PO DAILY 11/01/19 01/18/24 1 Day Ago History mcg-herbal no.293 37.5 mg chewable ~10/31/19 tablet (Alive Women's Gummy Vitamin) ascorbic acid (vitamin C) 500 mg 500 mg PO DAILY 03/23/20 01/18/24 Unknown History capsule biotin 300 mcg tablet 500 mcg PO DAILY 03/23/20 01/18/24 Unknown History vitamin E 200 unit capsule 200 unit PO DAILY 03/23/20 01/18/24 Unknown History lutein 20 mg capsule 20 mg PO DAILY 01/18/24 01/18/24 Unknown History paroxetine HCl 10 mg tablet 10 mg PO DAILY 01/18/24 01/18/24 Unknown History rosuvastatin 5 mg tablet 5 mg PO DAILY 01/18/24 01/18/24 Unknown History Allergies Allergy/AdvReac Type Severity Reaction Status Date / Time latex Allergy Intermediate Rash Verified 05/03/25 11:07 shellfish derived Allergy Mild Nausea Verified 05/03/25 11:07 hydrocodone (From Vicodin) AdvReac Mild Nausea Verified 05/03/25 11:07 morphine AdvReac Mild Nausea Verified 05/03/25 11:07 [facility] Past Medical History Medical History (Updated 05/03/25 @ 14:38 by Nimo Argueta MD) Endometriosis Colon cancer screening section wound complications Exploratory laparotomy scar Blood clot in abdominal vein Surgical History Surgical History History of tubal ligation H/O: hysterectomy Family History Family History Other Adopted Social History Social History (Reviewed 09/18/19 @ 08:35 by Tavia Hernandez [facility]) Smoking packs per day: 1 Smoking cigarettes per day: 20.0 Years smoked: 40 Smoking pack-years: 40.00 Smoking status: Current every day smoker Tobacco type: cigarettes Second hand tobacco smoke exposure: Yes Alcohol intake: never Substance use: never Substance use type: does not use Living arrangements: with family Gender identity (if verbalized by the patient): Female Spiritual care concerns: No Agree to blood products: Yes Course Vital Signs Vital signs: Vital Signs Pulse Rate 96 05/03/25 11:03 Respiratory Rate 17 05/03/25 11:03 Blood Pressure 130/77 05/03/25 11:03 Pulse Oximetry 97 05/03/25 11:03 Oxygen Delivery Room Air 05/03/25 11:03 Temperature 37.7 C H 05/03/25 11:10 Pulse Rate 82 05/03/25 12:28 Respiratory Rate 17 05/03/25 12:28 Blood Pressure 118/75 05/03/25 12:28 Pulse Oximetry 98 05/03/25 12:28 Oxygen Delivery Room Air 05/03/25 11:03 MDM - Abdominal Pain MDM Narrative Medical decision making narrative: Patient came with abdominal pain mainly epigastric right upper quadrant with fever and chills started 4 days ago Vital sign showing temperature 37.7? otherwise within normal limit Physical examination consistent with tenderness epigastric and right upper quadrant, positive Floyd signs Differential diagnosis include pancreatitis, cholecystitis, cholangitis, diverticulitis, colitis, urinary tract infection Blood workup today includes CBC, CMP, lipase showed WBC 16.2 total bilirubin 7.0 AST 282 ALT 438 alkaline phosphatase 520 lipase 510 Urinalysis positive nitrate and leukocyte Estrace for consistent with urinary tract infection CT abdomen and pelvis with IV contrast showed dilated biliary tree with distal stricture suspected, MRCP recommended Lab Data 05/03/25 11:20 05/03/25 11:20 Labs: Lab Results 05/03/25 Range/Units 11:20 WBC 16.2 H (4.5-10.0) K/mm3 RBC 4.28 (4.2-5.4) M/mm3 Hgb 13.8 (12.0-15.0) g/dL Hct 41.6 (37.0-47.0) % MCV 97.2 (80-100) fl MCH 32.2 (26-34) pg MCHC 33.2 (32-36) g/dl RDW 15.2 H (11.5-14.5) % Plt Count 253 (150-375) k/mm3 MPV 10.3 (7.4-10.4) fl Immature Gran % (Auto) 0.5 (0-0.5) % Neut % (Auto) 88.1 H (45.5-73.1) % Lymph % (Auto) 4.4 L (18.3-44.2) % [place] % (Auto) 6.8 (2.6-8.5) % Eos % (Auto) 0.0 (0-4.4) % Baso % (Auto) 0.2 (0.2-1.2) % Lymph # (Auto) 0.72 L (0.9-3.2) K/mm3 [place] # (Auto) 1.1 H (0.1-0.6) K/mm3 Eos # (Auto) 0.0 (0-0.3) K/mm3 Baso # (Auto) 0.0 (0.0-0.1) K/mm3 Abs Immat Gran (auto) 0.08 H (0.00-0.031) K/mm3 Absolute Neuts (auto) 14.3 H (1.3-6.7) K/mm3 Absolute Nucleated RBC 0.000 (0.0-0.012) K/mm3 Nucleated RBC % 0.0 (0.0-0.2) % Sodium 138 (137-145) mmol/L Potassium 3.7 (3.4-5.0) mmol/L Chloride 104 (98-107) mmol/L Carbon Dioxide 24 (22-30) mmol/L Anion Gap 10 (4-12) mmol/L BUN 13 (7-17) mg/dL Creatinine 0.56 L (0.7-1.0) mg/dL Estim Creat Clear Calc 105 ml/min Estimated GFR > 60 (59 - ) Glucose 179 H (65-110) mg/dL Calcium 9.1 (8.4-10.2) mg/dL Total Bilirubin 7.0 H (0.2-1.3) mg/dL AST 282 H (14-36) U/L ALT 438 H (6-35) U/L Alkaline Phosphatase 520 H (38-126) U/L Total Protein 8.2 (6.3-8.2) g/dL Albumin 4.0 (3.5-5.1) g/dL Lipase 510 H (23-300) U/L Urine Color Dark yellow (Yellow) Urine Appearance Cloudy H (Clear) Urine pH 5.0 (5.0-9.0) Ur Specific [place] 1.040 H (1.001-1.035) Urine Protein 2+ H (Negative) mg/dL Urine Glucose (UA) Negative (Negative) mg/dL Urine Ketones Negative (Negative) mg/dL Ur Blood (Man) Negative (Negative) Urine Nitrate Positive H (Negative) Urine Bilirubin 3+ H (Negative) Urine Urobilinogen 1.0 (<2.0) mg/dL Add Ur Microanalysis Reviewed Leukocyte Esterase Rfl 1+ H (Negative) KALYANI/UL Urine RBC 6-10 H (0-2) /hpf Urine WBC 0-5 (0-3) /hpf Ur Squamous Epith Cells Few (Few) /hpf Urine Bacteria 2+ H /hpf Urine Casts 0-2 Imaging Data Radiologist's impression: ITS Impressions Abdomen/Pelvis CT 05/03/25 13:03 IMPRESSION: 1. Dilated biliary tree detailed above with distal stricture suspected. MRCP recommended Discharge Plan Discharge Clinical Impression: Acute cholangitis Patient Disposition: Still a Patient Condition: Guarded Prognosis Patient Language: Nigerien Prescriptions: No Action cholecalciferol (vitamin D3) 25 mcg (1,000 unit) tablet,chewable 25 mcg PO DAILY cyanocobalamin (vitamin B-12) 1,000 mcg capsule 1,000 mcg PO DAILY biotin 300 mcg tablet 500 mcg PO DAILY ascorbic acid (vitamin C) 500 mg capsule 500 mg PO DAILY vitamin E 200 unit capsule 200 unit PO DAILY flaxseed oil-omega 3,6,9 1,300 mg-845 mg -117 mg-117 mg Capsule 1 cap PO DAILY elderberry fruit and flower 460-115 mg Capsule 1 cap PO DAILY Alive Women's Gummy Vitamin 200 mcg- 37.5 mg Tablet,Chewable 1 tablet PO DAILY paroxetine HCl 10 mg tablet 10 mg PO DAILY rosuvastatin 5 mg tablet 5 mg PO DAILY lutein 20 mg Capsule 20 mg PO DAILY Rx Instructions: give with meal/snack Follow-up/Referrals: Tiffanie,FARIHA Senior [Primary Care Provider, Unknown]
[2025-05-03 11:29] LABS: Hematocrit 41.6 % (37.0-47.0); Hemoglobin 13.8 g/dL (12.0-15.0); Immature Granulocyte Percent A 0.5 % (0-0.5); Lymphocytes Absolute Auto 0.72 K/mm3 (0.9-3.2); Mean Corpuscular HGB Conc 33.2 g/dl (32-36); Mean Corpuscular Hemoglobin 32.2 pg (26-34); Mean Corpuscular Volume 97.2 fl (80-100); Nucleated Red Blood Cells Absolute Auto 0.000 K/mm3 (0.0-0.012); Nucleated Red Blood Cells Perc 0.0 % (0.0-0.2); Platelet Count Result 253 k/mm3 (150-375); Red Blood Count 4.28 M/mm3 (4.2-5.4); White Blood Count 16.2 K/mm3 (4.5-10.0)
[2025-05-03 11:50] LABS: Alanine Aminotransferase 438 U/L (6-35); Albumin Level 4.0 g/dL (3.5-5.1); Alkaline Phosphatase 520 U/L (38-126); Anion Gap 10 mmol/L (4-12); Aspartate Amino Transferase 282 U/L (14-36); Bilirubin,Total 7.0 mg/dL (0.2-1.3); Blood Urea Nitrogen 13 mg/dL (7-17); Calcium 9.1 mg/dL (8.4-10.2); Carbon Dioxide 24 mmol/L (22-30); Chloride 104 mmol/L (98-107); Estimated CRCL calculation 105 ml/min; Estimated Glomerular Filt Rate > 60; Glucose 179 mg/dL (65-110); Lipase 510 U/L (23-300); Potassium 3.7 mmol/L (3.4-5.0); Sodium 138 mmol/L (137-145); Total Protein 8.2 g/dL (6.3-8.2)
[2025-05-03] MEDS: SODIUM CHLORIDE 0.9% IV 1,000 ML 999 ML IV CONT ×2 (11:57→14:38)
[2025-05-03 12:01] LABS: Add Urine Microscopic? YES; Appearance Urine Cloudy (Clear); Glucose Urine UA Negative (Negative); Leukocyte Esterase Ur 1+ LEU/UL (Negative); Need Manual Microscopic Reviewed; Nitrate Urine Positive (Negative); Non Pathogenic Casts 0-2; Specific Grav Ur 1.040 (1.001-1.035)
--- NOTE | 2025-05-03 14:23 | PM.IMHP ---
H&P: HPI History of Present Illness Date/Time: 05/03/25 14:23 Chief Complaint: Abdominal Pain, Fever Narrative: 54 y/o F with PMH of splenic clot, endometriosis, partial hysterectomy, and presents here with abdominal pain, fever, and chills. The patient presents here from home on 05/03 for further evaluation of abdominal pain, chills, and fever. She reports onset of symptoms on Monday, 04/30. She additionally reports she had a change in bowel movement starting on . She took Mathis's 2 and 8 prunes on (05/01) and was able to pass 3 bowel movements on Monday. She reports a maxT at home of 103? F. She denies previous history of small-bowel obstructions, but does have abdominal/pelvic surgical history including a partial hysterectomy, tubal ligation, exploratory laparatomy, and . Initial VS at presentation: 99.9? F, HR 96, R 17, 130/77, and 97% on RA. ED workup showed: WBC 16.2, no anemia, no significant electrolyte derangements, creatinine 0.56 and GFR >60, glucose 179, total bilirubin 7.0, AST 282, ALT 438, alk-phos 520, and lipase 510. UA suspicious for UTI. CT of the abdomen/pelvis showed a dilated biliary tree detailed above with distal stricture suspected, MRCP recommended. Review of Systems Review of Systems: All systems reviewed & are unremarkable except as noted in HPI and below PMFSH Past Medical History Medical History (Updated 05/03/25 @ 14:42 by Monica Quezada APRN) Endometriosis Colon cancer screening section wound complications Exploratory laparotomy scar Blood clot in abdominal vein Surgical History Surgical History History of tubal ligation H/O: hysterectomy Family History Family History Other Adopted Social History Social History Smoking packs per day: 1 Smoking cigarettes per day: 20.0 Years smoked: 40 Smoking pack-years: 40.00 Smoking status: Current every day smoker Tobacco type: cigarettes Second hand tobacco smoke exposure: Yes Alcohol intake: never Substance use: never Substance use type: does not use Lack of Transportation: No Lack of Food: Never True Current Housing: I Have Housing Concerned About Future Housing: No Difficulty Paying Gas/Electric Bills: No Difficulty Paying for Meds: No Currently Unemployed: No Education: High School Diploma/GED Difficulty w/ Childcare or Family Care: No Living arrangements: with family Gender identity (if verbalized by the patient): Female Spiritual care concerns: No Agree to blood products: Yes Meds Home Medications and Allergies Home Medications ?Medication ?Instructions ?Recorded ?Confirmed ?Type cholecalciferol (vitamin D3) 25 25 mcg PO DAILY 09/18/19 05/03/25 History mcg (1,000 unit) chewable tablet cyanocobalamin (vitamin B-12) 1,000 mcg PO DAILY 09/18/19 05/03/25 History 1,000 mcg capsule flaxseed oil 1,300 mg-omega 3,6,9 1 cap PO DAILY 11/01/19 05/03/25 History 845 mg-117 mg-117 mg capsule jrllfxal-otaq-pdxsk acid 200 1 tablet PO DAILY 11/01/19 05/03/25 History mcg-herbal no.293 37.5 mg chewable tablet (Alive Women's Gummy Vitamin) ascorbic acid (vitamin C) 500 mg 500 mg PO DAILY 03/23/20 05/03/25 History capsule biotin 300 mcg tablet 500 mcg PO DAILY 03/23/20 05/03/25 History vitamin E 200 unit capsule 200 unit PO DAILY 03/23/20 05/03/25 History lutein 20 mg capsule 20 mg PO DAILY 01/18/24 05/03/25 History rosuvastatin 5 mg tablet 5 mg PO DAILY 01/18/24 05/03/25 History wild yam 350 mg capsule 350 mg PO DAILY 05/03/25 05/03/25 History Allergies Allergy/AdvReac Type Severity Reaction Status Date / Time latex Allergy Intermediate Rash Verified 05/03/25 11:07 shellfish derived Allergy Mild Nausea Verified 05/03/25 11:07 hydrocodone (From Vicodin) AdvReac Mild Nausea Verified 05/03/25 11:07 morphine AdvReac Mild Nausea Verified 05/03/25 11:07 Vital Signs Vital Signs - 24 hr 05/03/25 11:03 05/03/25 11:10 05/03/25 12:28 Temperature 99.9 F H Pulse Rate 96 82 Respiratory Rate 17 17 Blood Pressure 130/77 118/75 Pulse Oximetry 97 98 Oxygen Delivery Room Air H&P: Results Labs Labs: Short CBC 05/03/25 Range/Units 11:20 WBC 16.2 H (4.5-10.0) K/mm3 Hgb 13.8 (12.0-15.0) g/dL Hct 41.6 (37.0-47.0) % Plt Count 253 (150-375) k/mm3 BMP 05/03/25 11:20 Sodium 138 Potassium 3.7 Chloride 104 Carbon Dioxide 24 BUN 13 Creatinine 0.56 L Glucose 179 H Calcium 9.1 Liver Function 05/03/25 Range/Units 11:20 Total Bilirubin 7.0 H (0.2-1.3) mg/dL AST 282 H (14-36) U/L ALT 438 H (6-35) U/L Alkaline Phosphatase 520 H (38-126) U/L Albumin 4.0 (3.5-5.1) g/dL Urine 05/03/25 Range/Units 11:20 Urine Color Dark yellow (Yellow) Urine Appearance Cloudy H (Clear) Urine pH 5.0 (5.0-9.0) Ur Specific [place] 1.040 H (1.001-1.035) Urine Protein 2+ H (Negative) mg/dL Urine Glucose (UA) Negative (Negative) mg/dL Assessment and Plan Assessment and plan (1) Sepsis: Qualifiers: Sepsis acute organ dysfunction status: without acute organ dysfunction Sepsis type: sepsis due to unspecified organism Qualified Code(s): A41.9 - Sepsis, unspecified organism Code(s): A41.9 - Sepsis, unspecified organism Status: Acute Assessment and Plan: - meets SIRS criteria: HR greater than 90, WBC greater than 12 - check lactic acid - 30 mL/kg = 2.4, given 2L bolus in the ED -> 150 mL/hr - suspected source: cholangitis, UTI - started on Zosyn - blood cultures drawn on 05/03, follow - monitor hemodynamic stability (2) Acute cholangitis: Code(s): K83.09 - Other cholangitis Status: Acute Assessment and Plan: Patient arrived with abdominal pain, fever, and jaundice. - CT abd/pelvis: Dilated biliary tree detailed above with distal stricture suspected. MRCP recommended - GI consulted - NPO - analgesics and antiemetics p.r.n. - IV fluids: 2 L bolus -> 150 mL/hour - trend LFTs - started on Zosyn on 05/03 - check RUQ US (3) Pancreatitis: Qualifiers: Acute pancreatitis complication: unspecified Chronicity: acute Pancreatitis type: biliary Qualified Code(s): K85.10 - Biliary acute pancreatitis without necrosis or infection Code(s): K85.90 - Acute pancreatitis without necrosis or infection, unspecified Status: Acute Assessment and Plan: - lipase 510 - suspected cholangitis, see above - analgesics p.r.n. - trend LFTs and lipase (4) UTI (urinary tract infection): Qualifiers: Hematuria presence: without hematuria Urinary tract infection type: acute cystitis Qualified Code(s): N30.00 - Acute cystitis without hematuria Code(s): N39.0 - Urinary tract infection, site not specified Status: Acute Assessment and Plan: - UA: Cloudy, high specific gravity, 2+ protein, positive nitrates, 3+ bilirubin, 1+ leuks, 6-10 RBC, 2+ bacteria with few epithelial cells - UC pending - no previous micro available for review - started on Zosyn on 05/03 (5) Transaminitis: Code(s): R74.01 - Elevation of levels of liver transaminase levels Status: Acute Assessment and Plan: - concern for cholangitis, see above - total bilirubin 7.0, AST 282, ALT 438, alk-phos 520 upon admission - IV fluids - trend Plan Diet: NPO GI Prophylaxis: PPI IV DVT Prophylaxis: scds IV fluids: 2L bolus -> 150 mL/hr Lines/Tubes: peripheral IV Code Status: Full code Quality VTE Prophylaxis VTE prophylaxis: mechanical ordered
[2025-05-03] MEDS: PIPERACILLIN/TAZOBACTAM SOD 3.375 GM in SODIUM CHLORIDE 0.9% IV 50 ML 100 ML IVPB ×2 (14:33→20:17)
[2025-05-03] MEDS: ACETAMINOPHEN 650 MG SUPPOSITORY RECTAL (14:41)
--- NOTE | 2025-05-03 16:15 | ADMGEN ---
This patient, Nidia Clinton, was admitted to Medical Room 345-01. Patient/family oriented to hospital policies and general routines including ID bracelet, bed and alarms, visiting hours, pain management, procedures, bathroom and other care routines, personal items, smoking policy, room service/diet, and visiting hours. Information on how to activate the Rapid Response Team has been discussed. Patient/Family are encouraged to report perceived risks to care and to ask questions if they do not understand what they are told or what they should do.
--- NOTE | 2025-05-03 16:37 | WPDGICN ---
Assessment and Plan Assessment and plan (1) Acute cholangitis: Code(s): K83.09 - Other cholangitis Status: Acute Assessment and Plan: This patient presents with a classic cholangitis triad of fever, jaundice, and abdominal pain, meeting criteria for severe infection/sepsis despite stable vital signs. A CT scan revealed a double duct sign, which is highly indicative of an obstruction in the distal common bile duct or at the ampulla of Vater. The differential diagnoses include cholangiocarcinoma, pancreatic carcinoma, or a large gallstone. Given the urgent nature of her clinical picture, prompt intervention is necessary. She requires transfer to a tertiary care center, such as [facility], for an endoscopic ultrasound to both establish a definitive etiologic diagnosis and perform urgent biliary drainage. In the interim, she will continue on her current antibiotic regimen until transfer. GI Consult Note Consult date/time: 05/03/25 16:37 Reason for consult: Jaundice-fever -abdominal pain HPI: Nidia Clinton, a 54-year-old woman with no notable past medical history, was in her usual state of health until three days ago. She began experiencing moderate to severe pain in her mid-abdomen and epigastric region, which she rated as a 6 out of 10. She had a single episode of diarrhea, with no further bowel movements since then. The pain progressively worsened, and 24 hours ago, she developed a fever of 103?F and chills. Upon her arrival at the emergency room, lab results showed : total bilirubin 7.0, AST 282, ALT 438, alkaline phosphatase 520, and lipase 510. A CT scan revealed both intrahepatic and pancreatic duct dilatation, with the common bile duct significantly dilated to 1.9 cm with an abrupt taper. There is cholelithiasis. Review of Systems Review of Systems: All systems reviewed & are unremarkable except as noted in HPI and below PMFSH Past Medical History Medical History (Updated 05/03/25 @ 14:42 by Monica Quezada APRN) Endometriosis Colon cancer screening section wound complications Exploratory laparotomy scar Blood clot in abdominal vein Surgical History Surgical History History of tubal ligation H/O: hysterectomy Family History Family History Other Adopted Social History Social History Smoking packs per day: 1 Smoking cigarettes per day: 20.0 Years smoked: 40 Smoking pack-years: 40.00 Smoking status: Current every day smoker Tobacco type: cigarettes Second hand tobacco smoke exposure: Yes Alcohol intake: never Substance use: never Substance use type: does not use Living arrangements: with family Gender identity (if verbalized by the patient): Female Spiritual care concerns: No Agree to blood products: Yes Meds Home Medications and Allergies Home Medications ?Medication ?Instructions ?Recorded ?Confirmed ?Type cholecalciferol (vitamin D3) 25 25 mcg PO DAILY 09/18/19 01/18/24 History mcg (1,000 unit) chewable tablet cyanocobalamin (vitamin B-12) 1,000 mcg PO DAILY 09/18/19 01/18/24 History 1,000 mcg capsule elderberry fruit 460 mg-elderberry 1 cap PO DAILY 11/01/19 01/18/24 History flower 115 mg capsule flaxseed oil 1,300 mg-omega 3,6,9 1 cap PO DAILY 11/01/19 01/18/24 History 845 mg-117 mg-117 mg capsule eefgtrde-adzz-avfij acid 200 1 tablet PO DAILY 11/01/19 01/18/24 History mcg-herbal no.293 37.5 mg chewable tablet (Alive Women's Gummy Vitamin) ascorbic acid (vitamin C) 500 mg 500 mg PO DAILY 03/23/20 01/18/24 History capsule biotin 300 mcg tablet 500 mcg PO DAILY 03/23/20 01/18/24 History vitamin E 200 unit capsule 200 unit PO DAILY 03/23/20 01/18/24 History lutein 20 mg capsule 20 mg PO DAILY 01/18/24 01/18/24 History paroxetine HCl 10 mg tablet 10 mg PO DAILY 01/18/24 01/18/24 History rosuvastatin 5 mg tablet 5 mg PO DAILY 01/18/24 01/18/24 History Allergies Allergy/AdvReac Type Severity Reaction Status Date / Time latex Allergy Intermediate Rash Verified 05/03/25 11:07 shellfish derived Allergy Mild Nausea Verified 05/03/25 11:07 hydrocodone (From Vicodin) AdvReac Mild Nausea Verified 05/03/25 11:07 morphine AdvReac Mild Nausea Verified 05/03/25 11:07 Vital Signs Vital Signs - 24 hr 05/03/25 11:03 05/03/25 11:10 05/03/25 12:28 Temperature 99.9 F H Pulse Rate 96 82 Respiratory Rate 17 17 Blood Pressure 130/77 118/75 Pulse Oximetry 97 98 Oxygen Delivery Room Air 05/03/25 13:00 05/03/25 13:16 05/03/25 13:45 Temperature Pulse Rate Respiratory Rate Blood Pressure 107/78 Pulse Oximetry 96 100 100 Oxygen Delivery 05/03/25 14:00 05/03/25 14:15 05/03/25 14:30 Temperature Pulse Rate 90 93 Respiratory Rate 20 20 Blood Pressure 120/68 128/80 134/99 H Pulse Oximetry 99 97 97 Oxygen Delivery 05/03/25 14:32 05/03/25 15:13 05/03/25 15:42 Temperature 102.4 F H 100.5 F H 100.5 F H Pulse Rate 89 89 Respiratory Rate 14 19 Blood Pressure 134/99 H Pulse Oximetry 98 96 Oxygen Delivery 05/03/25 16:00 Temperature 98.9 F Pulse Rate 93 Respiratory Rate 18 Blood Pressure 110/57 L Pulse Oximetry 97 Oxygen Delivery Exam Narrative: Mild jaundice, AOx 3, non distressed. Mildly tender to deep epigastric palpation Const: General: cooperative and healthy appearing Resp: Effort & Inspection: normal respiratory effort and able to speak in complete sentences Auscultation: clear to auscultation bilaterally Cardio: Rate: regular rate Rhythm: regular rhythm GI: Inspection: normal to inspection GI Palp: No No hepatosplenomegaly present Auscultation: normal bowel sounds Rectal Exam: deferred Skin: General skin exam: normal color Psych: Appearance: grossly normal Mental Status: mental status grossly normal Results Labs 05/03/25 11:20 05/03/25 11:20 Labs: Short CBC 05/03/25 Range/Units 11:20 WBC 16.2 H (4.5-10.0) K/mm3 Hgb 13.8 (12.0-15.0) g/dL Hct 41.6 (37.0-47.0) % Plt Count 253 (150-375) k/mm3 BMP 05/03/25 11:20 Sodium 138 Potassium 3.7 Chloride 104 Carbon Dioxide 24 BUN 13 Creatinine 0.56 L Glucose 179 H Calcium 9.1 Liver Function 05/03/25 Range/Units 11:20 Total Bilirubin 7.0 H (0.2-1.3) mg/dL AST 282 H (14-36) U/L ALT 438 H (6-35) U/L Alkaline Phosphatase 520 H (38-126) U/L Albumin 4.0 (3.5-5.1) g/dL Urine 05/03/25 Range/Units 11:20 Urine Color Dark yellow (Yellow) Urine Appearance Cloudy H (Clear) Urine pH 5.0 (5.0-9.0) Ur Specific [place] 1.040 H (1.001-1.035) Urine Protein 2+ H (Negative) mg/dL Urine Glucose (UA) Negative (Negative) mg/dL
[2025-05-03] MEDS: SODIUM CHLORIDE 0.9% IV 1,000 ML 150 ML IV CONT (16:53)
--- NOTE | 2025-05-03 17:51 | P.TS_ITS ---
Transfer Discharge Sum: Prov Provider Date of admission: 05/03/25 14:26 Primary care physician: Nadeen Moreno, PA-C Admitting clinician: Carlitos Soliman MD Attending physician on admission: Carlitos Soliman Consults: 05/03/25 14:27 Consult to Physician Routine Comment: Consulting Provider: David Dumont Reason for consultation: Acute cholangitis, urinary tract infection Has provider been notified: Yes This patient presents with a classic cholangitis triad of fever, jaundice, and abdominal pain, meeting criteria for severe infection/sepsis despite stable vital signs. A CT scan revealed a double duct sign, which is highly indicative of an obstruction in the distal common bile duct or at the ampulla of Vater. The differential diagnoses include cholangiocarcinoma, pancreatic carcinoma, or a large gallstone. Given the urgent nature of her clinical picture, prompt intervention is necessary. She requires transfer to a tertiary care center, such as [facility], for an endoscopic ultrasound to both establish a definitive etiologic diagnosis and perform urgent biliary drainage. In the interim, she will continue on her current antibiotic regimen until transfer. Attending physician on discharge: Carlitos Soliman Discharging clinician: Monica Quezada Anticipated date of transfer: 05/03/25 Receiving physician/facility: [facility]. Karson Bueno?(Internal Medicine) and Hair Ty (GI/Biliary). DS: Admitting Diagnosis Discharge Date 05/03/25 Admitting Diagnosis Acute Cholangitis, Urinary Tract Infection DS: Discharge Diagnosis Discharge Diagnosis Plan Acute Cholangitis, Urinary Tract Infection The patient was discharged in stable condition and A&O x4. Transfer Discharge Sum: Med Medications Active and Home Medications: Home Medications cholecalciferol (vitamin D3) 25 mcg (1,000 unit) chewable tablet 25 mcg PO DAILY 09/18/19 [History Confirmed 05/03/25] cyanocobalamin (vitamin B-12) 1,000 mcg capsule 1,000 mcg PO DAILY 09/18/19 [History Confirmed 05/03/25] flaxseed oil 1,300 mg-omega 3,6,9 845 mg-117 mg-117 mg capsule 1 cap PO DAILY 11/01/19 [History Confirmed 05/03/25] ecvaibgi-yiti-qgsyb acid 200 mcg-herbal no.293 37.5 mg chewable tablet (Alive Women's Gummy Vitamin) 1 tablet PO DAILY 11/01/19 [History Confirmed 05/03/25] ascorbic acid (vitamin C) 500 mg capsule 500 mg PO DAILY 03/23/20 [History Confirmed 05/03/25] biotin 300 mcg tablet 500 mcg PO DAILY 03/23/20 [History Confirmed 05/03/25] vitamin E 200 unit capsule 200 unit PO DAILY 03/23/20 [History Confirmed 05/03/25] lutein 20 mg capsule 20 mg PO DAILY 01/18/24 [History Confirmed 05/03/25] rosuvastatin 5 mg tablet 5 mg PO DAILY 01/18/24 [History Confirmed 05/03/25] wild yam 350 mg capsule 350 mg PO DAILY 05/03/25 [History Confirmed 05/03/25] Active Medications Acetaminophen (Acetaminophen 325 Mg Tablet) 650 mg PO Q4H PRN PRN Reason: Mild Pain (1-3) or Fever Docusate Sodium (Docusate Sodium 100 Mg Capsule) 100 mg PO Q12H PRN PRN Reason: Constipation Fentanyl Citrate (Fentanyl Citrate Inj (*Crx) 100 Mcg/2 Ml Vial) 25 mcg IV PUSH Q4H PRN PRN Reason: Pain Rated 6 or Greater Piperacillin Sod/Tazobactam (Sod 3.375 gm/ Sodium Chloride) 50 mls @ 100 mls/hr IVPB Q6H [facility] Sodium Chloride (Normal Saline Iv) 1,000 mls @ 150 mls/hr IV CONT .Q6H40M [facility] Last Admin: 05/03/25 16:53 Dose: 150 mls/hr Ondansetron HCl (Ondansetron Inj 4 Mg/2 Ml Vial) 4 mg IV PUSH Q6H PRN PRN Reason: Nausea And Vomiting Pantoprazole Sodium (Pantoprazole Sodium Iv 40 Mg Vial) 40 mg IV PUSH DAILY [facility] Transfer Discharge Sum: Hosp Hospital Course Hospital course: 54 y/o F with PMH of splenic clot, endometriosis, partial hysterectomy, and C- section presents here with abdominal pain, fever, and chills. The patient presents here from home on 05/03 for further evaluation of abdominal pain, chills, and fever.? She reports onset of symptoms on Monday, 04/30.? She described the abdominal pain as bilateral, lower, 6/10, and progressive/severe since onset. However, when her stomach is touched she more so has epigastric pain. She reports a single episode of diarrhea with no further bowel movements since. She reports a maxT at home of 103? F. She denies previous history of small-bowel obstructions or gallstones. She does have a abdominal/pelvic surgical history including a partial hysterectomy, tubal ligation, exploratory laparotomy, and . Initial VS at presentation:? 99.9? F, HR 96, R 17, 130/77, and 97% on RA. ED workup showed:? WBC 16.2, no anemia, no significant electrolyte derangements, creatinine 0.56 and GFR >60, glucose 179, total bilirubin 7.0, AST 282, ALT 438, alk-phos 520, and lipase 510.? UA suspicious for UTI.? CT of the abdomen/pelvis showed a dilated biliary tree detailed above with distal stricture suspected, MRCP recommended. GI reviewed the patient's image with the radiologist, addended to read There is dilatation of the pancreatic duct diffusely measuring maximally 6 mm distally, possibility of a pancreatic head neoplasm is not exc luded. Clinically this is of primary concern and contrast-enhanced MRI is recommended to assess. The patient was admitted to the hospital for suspected acute cholangitis given abdominal pain, fever (max T 102.4? F here, 103? F at home), and jaundice. Plan initially for EGD this afternoon, however after the GI provider reviewed the patient's imaging there was concern for double duct sign. Prompting an transfer to a tertiary care center for endoscopic ultrasound to establish a definitive diagnosis and for a urgent biliary drainage. She was started on Zosyn 3.375 Q6H, IV fluids, and antiemetics/analgesics p.r.n.. The patient met criteria for sepsis due to a heart rate greater than 90, WBC greater than 12, and fever. Initial lactic was 1.1 and blood cultures were obtained on 05/03. A right upper quadrant ultrasound is pending. Patient Condition: Stable Time Spent with Patient Time attestation: Total time spent providing and/or coordinating transfer services: Total time spent: Less than 30 minutes Exam Const: General: comfortable and no acute distress Other: , female, nontoxic appearance HENMT: Face/Nose/Sinus: Normal nares present Mouth: Yes dry mucous membranes Eyes: General: appearance normal, both eyes and all related structures Sclera: scleral abnormality (Mild icterus bilaterally) Pupils: Equal, round and reactive pupils present EOM: EOMs intact bilaterally Resp: Effort & Inspection: normal respiratory effort Auscultation: clear to auscultation bilaterally Cardio: Rate: regular rate Rhythm: regular rhythm Other: S1-S2 present without murmur, rub, ectopy GI: Other: + epigastric tenderness with palpation. Abdomen otherwise soft and nondistended. Normoactive bowel sounds in all quadrants. No hepatomegaly or splenomegaly appreciated. Skin: General skin exam: no rashes or lesions noted Wounds: no wounds Other: Mild jaundice noted, however patient does not appreciate any changes in skin color. Neuro: Speech: normal speech Motor exam (neuro): 5/5 motor strength present throughout Sensory Exam: normal sensation Other: A&O x4 Extrem: General: normal to inspection Psych: Mental Status: mental status grossly normal Affect: normal affect Other: Good insight and judgment, pleasant DS: Data Data Completed and Pending Pending studies at discharge: Right upper quadrant ultrasound Labs on day of discharge: Labs from last 24 hours 05/03/25 05/03/25 15:01 11:20 WBC 16.2 H RBC 4.28 Hgb 13.8 Hct 41.6 MCV 97.2 MCH 32.2 MCHC 33.2 RDW 15.2 H Plt Count 253 MPV 10.3 Immature Gran % (Auto) 0.5 Neut % (Auto) 88.1 H Lymph % (Auto) 4.4 L [place] % (Auto) 6.8 Eos % (Auto) 0.0 Baso % (Auto) 0.2 Lymph # (Auto) 0.72 L [place] # (Auto) 1.1 H Eos # (Auto) 0.0 Baso # (Auto) 0.0 Abs Immat Gran (auto) 0.08 H Absolute Neuts (auto) 14.3 H Absolute Nucleated RBC 0.000 Nucleated RBC % 0.0 Sodium 138 Potassium 3.7 Chloride 104 Carbon Dioxide 24 Anion Gap 10 BUN 13 Creatinine 0.56 L Estim Creat Clear Calc 105 Estimated GFR > 60 Glucose 179 H Lactic Acid 1.1 Calcium 9.1 Total Bilirubin 7.0 H AST 282 H ALT 438 H Alkaline Phosphatase 520 H Total Protein 8.2 Albumin 4.0 Lipase 510 H Urine Color Dark yellow Urine Appearance Cloudy H Urine pH 5.0 Ur Specific [place] 1.040 H Urine Protein 2+ H Urine Glucose (UA) Negative Urine Ketones Negative Ur Blood (Man) Negative Urine Nitrate Positive H Urine Bilirubin 3+ H Urine Urobilinogen 1.0 Add Ur Microanalysis Reviewed Leukocyte Esterase Rfl 1+ H Urine RBC 6-10 H Urine WBC 0-5 Ur Squamous Epith Cells Few Urine Bacteria 2+ H Urine Casts 0-2 Imaging Radiologist's impression: Patient: Nidia Clinton : 1970 MR#: [id number] Age: 54 Acct:[id number] Loc: [id number] [facility] Date: 05/03/25 ADDENDUMThere is dilatation of the pancreatic duct diffusely measuring maximally 6 mm distally, possibility of a pancreatic head neoplasm is not excluded. Clinically this is of primary concern and contrast-enhanced MRI is recommended to assess Addendum Dictated By: Reagan Santos MD Addendum Signed By: <Electronically signed by Reagan Santos MD in OV> 05/03/25 1556 Addendum Cosigned By: Nidia Clinton EXAMINATION: CT abdomen pelvis w con COMPARISON: None HISTORY: Abdominal pain TECHNIQUE: Axial images were obtained through the abdomen, pelvis post administration of IV contrast. Oral contrast was also administered. Coronal reconstruction images were obtained from the axial views. CT scan performed using dose optimization techniques including the following automated exposure control; adjustment of mA and/or kV; use of iterative reconstruction technique. Automatic exposure control was used to reduce radiation dose. Permanent radiation dose record is archived to PACS. FINDINGS: CT abdomen: LUNG BASES: Lung bases demonstrate calcified granulomas. LIVER: Mild hepatic steatosis. Mild intrahepatic biliary duct dilatation. The main portal vein is patent. SPLEEN: Unremarkable. KIDNEYS: Right Kidney: Unremarkable. No calculi. No hydronephrosis. Left Kidney: Unremarkable. No calculi. No hydronephrosis ADRENAL GLANDS: Unremarkable. PANCREAS: The distal pancreatic duct is dilated measuring 6 mm. The remaining pancreas appears unremarkable. GALLBLADDER/BILIARY: Cholelithiasis. The CBD is dilated measuring 1.9 cm tapering abruptly distally with mild hyperemia of the CBD suspected. STOMACH AND ESOPHAGUS: Visualized stomach and esophagus within normal limits. BOWEL/MESENTERY: Moderate fecal content, no colitis or diverticulitis. Appendix normal. Mesentery normal. No dilated small bowel loops. ADENOPATHY/RETROPERITONEUM: No lymphadenopathy. AORTA/VASCULATURE: Normal caliber aorta. FREE FLUID OR FREE AIR: No free fluid.. CT pelvis: SOLID ORGANS/REPRODUCTIVE: Uterus atrophic. No adnexal mass. BLADDER: Within normal limits. OSSEOUS STRUCTURES: No acute osseous abnormality.No suspicious lesions. OVERLYING SOFT TISSUES: Unremarkable. IMPRESSION: 1. Dilated biliary tree detailed above with distal stricture suspected. MRCP recommended Reviewed, dictated and finalized at location A.
[2025-05-03] MEDS: ACETAMINOPHEN 325 MG TABLET 650 MG PO (18:15)
--- NOTE | 2025-05-03 20:50 | PC.NURSE ---
Notified Ammon Quezada regarding pts temperature 102.6 F, New order for Toradol 30mg IVPUSH Now.
[2025-05-03] MEDS: KETOROLAC 30 MG/ML VIAL (*BKC) IV PUSH (22:02)
[2025-05-04] MEDS: SODIUM CHLORIDE 0.9% IV 1,000 ML 150 ML IV CONT (00:22)
[2025-05-04 01:00] VITALS: TEMP 37.2
[2025-05-04] MEDS: PIPERACILLIN/TAZOBACTAM SOD 3.375 GM in SODIUM CHLORIDE 0.9% IV 50 ML 100 ML IVPB ×3 (02:22→13:27)
[2025-05-04 02:30] VITALS: TEMP 36.8
[2025-05-04] MEDS: ACETAMINOPHEN 325 MG TABLET 650 MG PO (05:43)
[2025-05-04 06:00] VITALS: BP 103/70; PULSE 75; RESP 18; TEMP 37.5; O2SAT 99
[2025-05-04 06:18] LABS: Hematocrit 34.7 % (37.0-47.0); Hemoglobin 11.5 g/dL (12.0-15.0); Immature Granulocyte Percent A 0.4 % (0-0.5); Lymphocytes Absolute Auto 1.07 K/mm3 (0.9-3.2); Mean Corpuscular HGB Conc 33.1 g/dl (32-36); Mean Corpuscular Hemoglobin 32.6 pg (26-34); Mean Corpuscular Volume 98.3 fl (80-100); Nucleated Red Blood Cells Absolute Auto 0.000 K/mm3 (0.0-0.012); Nucleated Red Blood Cells Perc 0.0 % (0.0-0.2); Platelet Count Result 209 k/mm3 (150-375); Red Blood Count 3.53 M/mm3 (4.2-5.4); White Blood Count 7.7 K/mm3 (4.5-10.0)
[2025-05-04 06:40] LABS: Alanine Aminotransferase 265 U/L (6-35); Albumin Level 2.9 g/dL (3.5-5.1); Alkaline Phosphatase 405 U/L (38-126); Anion Gap 5 mmol/L (4-12); Aspartate Amino Transferase 133 U/L (14-36); Bilirubin,Total 6.2 mg/dL (0.2-1.3); Blood Urea Nitrogen 8 mg/dL (7-17); Calcium 7.9 mg/dL (8.4-10.2); Carbon Dioxide 23 mmol/L (22-30); Chloride 110 mmol/L (98-107); Estimated CRCL calculation 107 ml/min; Estimated Glomerular Filt Rate > 60; Glucose 96 mg/dL (65-110); Magnesium 2.0 mg/dL (1.6-2.3); Potassium 3.2 mmol/L (3.4-5.0); Sodium 138 mmol/L (137-145); Total Protein 6.1 g/dL (6.3-8.2)
[2025-05-04] MEDS: PANTOPRAZOLE SODIUM IV 40 MG VIAL IV PUSH (08:20)
[2025-05-04] MEDS: POTASSIUM CHLORIDE INJ 40 MEQ in SODIUM CHLORIDE 0.9% IV 500 ML 130 MEQ IVPB (08:27)
--- NOTE | 2025-05-04 08:53 | PM.IMPN ---
Progress Note: A&P Assessment and Plan (1) Sepsis: Qualifiers: Sepsis type: sepsis due to unspecified organism Sepsis acute organ dysfunction status: without acute organ dysfunction Qualified Code(s): A41.9 - Sepsis, unspecified organism Code(s): A41.9 - Sepsis, unspecified organism Status: Acute (2) Acute cholangitis: Code(s): K83.09 - Other cholangitis Status: Acute (3) Pancreatitis: Qualifiers: Chronicity: acute Pancreatitis type: biliary Acute pancreatitis complication: unspecified Qualified Code(s): K85.10 - Biliary acute pancreatitis without necrosis or infection Code(s): K85.90 - Acute pancreatitis without necrosis or infection, unspecified Status: Acute (4) UTI (urinary tract infection): Qualifiers: Urinary tract infection type: acute cystitis Hematuria presence: without hematuria Qualified Code(s): N30.00 - Acute cystitis without hematuria Code(s): N39.0 - Urinary tract infection, site not specified Status: Acute (5) Transaminitis: Code(s): R74.01 - Elevation of levels of liver transaminase levels Status: Acute Plan Acute Cholangitis, Urinary Tract Infection This patient presents with a classic cholangitis triad of fever, jaundice, and abdominal pain, meeting criteria for severe infection/sepsis despite stable vital signs. A CT scan revealed a double duct sign, which is highly indicative of an obstruction in the distal common bile duct or at the ampulla of Vater. The differential diagnoses include cholangiocarcinoma, pancreatic carcinoma, or a large gallstone. Given the urgent nature of her clinical picture, prompt intervention is necessary. She requires transfer to a tertiary care center, such as [facility], for an endoscopic ultrasound to both establish a definitive etiologic diagnosis and perform urgent biliary drainage. In the interim, she will continue on her current antibiotic regimen until transfer. 05/04-wbc 7.7 k 3.2- IV replacement ordered. pt is in no acute distress this morning. Time Spent With Patient Time with patient: 25 - 35 minutes Subjective Date/time seen: 05/04/25 08:53 Interval history: pt is seen and examined. She is accepted for transfer to [facility] and now waiting for a bed. [facility], [facility]. Karson Bueno?(Internal Medicine) and Hair Ty (GI/Biliary). She is doing well this morning- WBC 7.7. Abdulaziz cute pain. Noted K is 3.2-will order ic replacement. Review of Systems Review of Systems: All systems reviewed & are unremarkable except as noted in HPI and below Exam Const: General: comfortable and no acute distress Other: , female, nontoxic appearance HENMT: Face/Nose/Sinus: Normal nares present Mouth: Yes dry mucous membranes Eyes: General: appearance normal, both eyes and all related structures Sclera: scleral abnormality (Mild icterus bilaterally) Pupils: Equal, round and reactive pupils present EOM: EOMs intact bilaterally Resp: Effort & Inspection: normal respiratory effort Auscultation: clear to auscultation bilaterally Cardio: Rate: regular rate Rhythm: regular rhythm Other: S1-S2 present without murmur, rub, ectopy GI: Other: + epigastric tenderness with palpation. Abdomen otherwise soft and nondistended. Normoactive bowel sounds in all quadrants. No hepatomegaly or splenomegaly appreciated. Skin: General skin exam: no rashes or lesions noted Wounds: no wounds Other: Mild jaundice noted, however patient does not appreciate any changes in skin color. Neuro: Cranial nerves: Yes Equal, round and reactive pupils present Speech: normal speech Motor exam (neuro): 5/5 motor strength present throughout Sensory Exam: normal sensation Other: A&O x4 Extrem: General: normal to inspection Psych: Mental Status: mental status grossly normal Affect: normal affect Other: Good insight and judgment, pleasant Objective Data Vital Signs Vital Signs: Vital Signs - 24 hr 05/03/25 11:03 05/03/25 11:10 05/03/25 12:28 Temperature 99.9 F H Pulse Rate 96 82 Respiratory Rate 17 17 Blood Pressure 130/77 118/75 Pulse Oximetry 97 98 Oxygen Delivery Room Air 05/03/25 13:00 05/03/25 13:16 05/03/25 13:45 Temperature Pulse Rate Respiratory Rate Blood Pressure 107/78 Pulse Oximetry 96 100 100 Oxygen Delivery 05/03/25 14:00 05/03/25 14:15 05/03/25 14:30 Temperature Pulse Rate 90 93 Respiratory Rate 20 20 Blood Pressure 120/68 128/80 134/99 H Pulse Oximetry 99 97 97 Oxygen Delivery 05/03/25 14:32 05/03/25 15:13 05/03/25 15:42 Temperature 102.4 F H 100.5 F H 100.5 F H Pulse Rate 89 89 Respiratory Rate 14 19 Blood Pressure 134/99 H Pulse Oximetry 98 96 Oxygen Delivery 05/03/25 16:00 05/03/25 16:08 05/03/25 20:00 Temperature 98.9 F Pulse Rate 93 Respiratory Rate 18 Blood Pressure 110/57 L Pulse Oximetry 97 Oxygen Delivery Room Air Room Air 05/03/25 22:00 05/03/25 23:00 05/04/25 01:00 Temperature 102.6 F H 99.6 F 99 F Pulse Rate 76 Respiratory Rate 18 Blood Pressure 103/63 Pulse Oximetry 96 Oxygen Delivery 05/04/25 02:30 05/04/25 06:00 Temperature 98.2 F 99.5 F Pulse Rate 75 Respiratory Rate 18 Blood Pressure 103/70 Pulse Oximetry 99 Oxygen Delivery Intake/Output Intake/Output: Intake & Output 05/01/25 05/02/25 05/03/25 05/04/25 23:59 23:59 23:59 23:59 Intake Total 3580 50 Balance 3580 50 Meds/Results Medications: Active Medications Generic Name Dose Route Start Last Admin Trade Name Freq PRN Reason Stop Dose Admin Acetaminophen 650 mg 05/03/25 14:45 05/04/25 05:43 Acetaminophen 325 Mg Tablet PO 650 mg Q4H PRN Administration Mild Pain (1-3) or Fever Docusate Sodium 100 mg 05/03/25 14:47 Docusate Sodium 100 Mg Capsule PO Q12H PRN Constipation Fentanyl Citrate 25 mcg 05/03/25 14:45 Fentanyl Citrate Inj (*Crx) 100 Mcg/2 Ml Vial IV PUSH Q4H PRN Pain Rated 6 or Greater Piperacillin Sod/Tazobactam 50 mls @ 100 mls/hr 05/03/25 20:00 05/04/25 08:21 Sod 3.375 gm/ Sodium Chloride IVPB 100 mls/hr Q6H MARJ Administration Sodium Chloride 1,000 mls @ 150 mls/hr 05/03/25 14:25 05/04/25 00:22 Normal Saline Iv IV CONT 150 mls/hr .Q6H40M MARJ Administration Potassium Chloride 40 meq/ 520 mls @ 130 mls/hr 05/04/25 07:29 05/04/25 08:27 Sodium Chloride IVPB 05/04/25 11:28 130 mls/hr ONCE ONE Administration Ondansetron HCl 4 mg 05/03/25 14:45 Ondansetron Inj 4 Mg/2 Ml Vial IV PUSH Q6H PRN Nausea And Vomiting Pantoprazole Sodium 40 mg 05/04/25 09:00 05/04/25 08:20 Pantoprazole Sodium Iv 40 Mg Vial IV PUSH 40 mg DAILY MARJ Administration Radiology Results: ITS Impressions Abdomen/Pelvis CT 05/03/25 13:03 IMPRESSION: 1. Dilated biliary tree detailed above with distal stricture suspected. MRCP recommended ADDENDUM: 05/03/25 3596 There is dilatation of the pancreatic duct diffusely measuring maximally 6 mm distally, possibility of a pancreatic head neoplasm is not excluded. Clinically this is of primary concern and contrast-enhanced MRI is recommended to assess Labs Labs: Laboratory Results - last 24 hr 05/03/25 05/03/25 05/04/25 11:20 15:01 05:49 WBC 16.2 H 7.7 RBC 4.28 3.53 L Hgb 13.8 11.5 L Hct 41.6 34.7 L MCV 97.2 98.3 MCH 32.2 32.6 MCHC 33.2 33.1 RDW 15.2 H 15.5 H Plt Count 253 209 MPV 10.3 10.6 H Immature Gran % (Auto) 0.5 0.4 Neut % (Auto) 88.1 H 68.5 Lymph % (Auto) 4.4 L 13.9 L [place] % (Auto) 6.8 14.3 H Eos % (Auto) 0.0 2.5 Baso % (Auto) 0.2 0.4 Lymph # (Auto) 0.72 L 1.07 [place] # (Auto) 1.1 H 1.1 H Eos # (Auto) 0.0 0.2 Baso # (Auto) 0.0 0.0 Abs Immat Gran (auto) 0.08 H 0.03 Absolute Neuts (auto) 14.3 H 5.3 Absolute Nucleated RBC 0.000 0.000 Nucleated RBC % 0.0 0.0 Sodium 138 138 Potassium 3.7 3.2 L Chloride 104 110 H Carbon Dioxide 24 23 Anion Gap 10 5 BUN 13 8 D Creatinine 0.56 L 0.48 L Estim Creat Clear Calc 105 107 Estimated GFR > 60 > 60 Glucose 179 H 96 Lactic Acid 1.1 Calcium 9.1 7.9 L Magnesium 2.0 Total Bilirubin 7.0 H 6.2 H AST 282 H 133 H ALT 438 H 265 H Alkaline Phosphatase 520 H 405 H Total Protein 8.2 6.1 L Albumin 4.0 2.9 L Lipase 510 H Urine Color Dark yellow Urine Appearance Cloudy H Urine pH 5.0 Ur Specific [place] 1.040 H Urine Protein 2+ H Urine Glucose (UA) Negative Urine Ketones Negative Ur Blood (Man) Negative Urine Nitrate Positive H Urine Bilirubin 3+ H Urine Urobilinogen 1.0 Add Ur Microanalysis Reviewed Leukocyte Esterase Rfl 1+ H Urine RBC 6-10 H Urine WBC 0-5 Ur Squamous Epith Cells Few Urine Bacteria 2+ H Urine Casts 0-2
--- NOTE | 2025-05-04 12:05 | P.PNGI_ITS ---
Progress Note: A&P Assessment and Plan (1) Acute cholangitis: Code(s): K83.09 - Other cholangitis Status: Acute Assessment and Plan: The patient did well overnight, her white count is now normal, and she is afebrile. Coordination has been made with [facility], and she is currently waiting for a bed To be transferred. She will need urgent intervention including endoscopic ultrasound and possibly ERCP with decompression of the biliary tree and an etiologic diagnosis of this acute obstruction. Subjective Date/time seen: 05/04/25 12:05 Objective Data Vital Signs Vital Signs: Vital Signs - 24 hr 05/03/25 12:28 05/03/25 13:00 05/03/25 13:16 Temperature Pulse Rate 82 Respiratory Rate 17 Blood Pressure 118/75 Pulse Oximetry 98 96 100 Oxygen Delivery 05/03/25 13:45 05/03/25 14:00 05/03/25 14:15 Temperature Pulse Rate 90 Respiratory Rate 20 Blood Pressure 107/78 120/68 128/80 Pulse Oximetry 100 99 97 Oxygen Delivery 05/03/25 14:30 05/03/25 14:32 05/03/25 15:13 Temperature 102.4 F H 100.5 F H Pulse Rate 93 89 Respiratory Rate 20 14 Blood Pressure 134/99 H 134/99 H Pulse Oximetry 97 98 Oxygen Delivery 05/03/25 15:42 05/03/25 16:00 05/03/25 16:08 Temperature 100.5 F H 98.9 F Pulse Rate 89 93 Respiratory Rate 19 18 Blood Pressure 110/57 L Pulse Oximetry 96 97 Oxygen Delivery Room Air 05/03/25 20:00 05/03/25 22:00 05/03/25 23:00 Temperature 102.6 F H 99.6 F Pulse Rate 76 Respiratory Rate 18 Blood Pressure 103/63 Pulse Oximetry 96 Oxygen Delivery Room Air 05/04/25 01:00 05/04/25 02:30 05/04/25 06:00 Temperature 99 F 98.2 F 99.5 F Pulse Rate 75 Respiratory Rate 18 Blood Pressure 103/70 Pulse Oximetry 99 Oxygen Delivery 05/04/25 08:00 Temperature Pulse Rate Respiratory Rate Blood Pressure Pulse Oximetry Oxygen Delivery Room Air Intake/Output Intake/Output: Intake & Output 05/01/25 05/02/25 05/03/25 05/04/25 23:59 23:59 23:59 23:59 Intake Total 3580 530 Balance 3580 530 Meds/Results Medications: Active Medications Generic Name Dose Route Start Last Admin Trade Name Freq PRN Reason Stop Dose Admin Acetaminophen 650 mg 05/03/25 14:45 05/04/25 05:43 Acetaminophen 325 Mg Tablet PO 650 mg Q4H PRN Administration Mild Pain (1-3) or Fever Docusate Sodium 100 mg 05/03/25 14:47 Docusate Sodium 100 Mg Capsule PO Q12H PRN Constipation Fentanyl Citrate 25 mcg 05/03/25 14:45 Fentanyl Citrate Inj (*Crx) 100 Mcg/2 Ml Vial IV PUSH Q4H PRN Pain Rated 6 or Greater Piperacillin Sod/Tazobactam 50 mls @ 100 mls/hr 05/03/25 20:00 05/04/25 08:21 Sod 3.375 gm/ Sodium Chloride IVPB 100 mls/hr Q6H MARJ Administration Sodium Chloride 1,000 mls @ 150 mls/hr 05/03/25 14:25 05/04/25 00:22 Normal Saline Iv IV CONT 150 mls/hr .Q6H40M MARJ Administration Ondansetron HCl 4 mg 05/03/25 14:45 Ondansetron Inj 4 Mg/2 Ml Vial IV PUSH Q6H PRN Nausea And Vomiting Pantoprazole Sodium 40 mg 05/04/25 09:00 05/04/25 08:20 Pantoprazole Sodium Iv 40 Mg Vial IV PUSH 40 mg DAILY MARJ Administration Radiology Results: ITS Impressions Abdomen/Pelvis CT 05/03/25 13:03 IMPRESSION: 1. Dilated biliary tree detailed above with distal stricture suspected. MRCP recommended ADDENDUM: 05/03/25 8144 There is dilatation of the pancreatic duct diffusely measuring maximally 6 mm distally, possibility of a pancreatic head neoplasm is not excluded. Clinically this is of primary concern and contrast-enhanced MRI is recommended to assess Labs Labs: Laboratory Results - last 24 hr 05/03/25 05/04/25 15:01 05:49 WBC 7.7 RBC 3.53 L Hgb 11.5 L Hct 34.7 L MCV 98.3 MCH 32.6 MCHC 33.1 RDW 15.5 H Plt Count 209 MPV 10.6 H Immature Gran % (Auto) 0.4 Neut % (Auto) 68.5 Lymph % (Auto) 13.9 L [place] % (Auto) 14.3 H Eos % (Auto) 2.5 Baso % (Auto) 0.4 Lymph # (Auto) 1.07 [place] # (Auto) 1.1 H Eos # (Auto) 0.2 Baso # (Auto) 0.0 Abs Immat Gran (auto) 0.03 Absolute Neuts (auto) 5.3 Absolute Nucleated RBC 0.000 Nucleated RBC % 0.0 Sodium 138 Potassium 3.2 L Chloride 110 H Carbon Dioxide 23 Anion Gap 5 BUN 8 D Creatinine 0.48 L Estim Creat Clear Calc 107 Estimated GFR > 60 Glucose 96 Lactic Acid 1.1 Calcium 7.9 L Magnesium 2.0 Total Bilirubin 6.2 H AST 133 H ALT 265 H Alkaline Phosphatase 405 H Total Protein 6.1 L Albumin 2.9 L
[2025-05-04 14:00] VITALS: BP 142/78; PULSE 76; RESP 18; TEMP 36.2; O2SAT 100
--- NOTE | 2025-05-08 12:33 | PM.IMHP ---
H&P: HPI History of Present Illness Date/Time: 05/08/25 12:33 Chief Complaint: Abdominal Pain, Fever Narrative: 54 y/o F with PMH of splenic clot, endometriosis, partial hysterectomy, and presents here with abdominal pain, fever, and chills. The patient presents here from home on 05/03 for further evaluation of abdominal pain, chills, and fever.? She reports onset of symptoms on Monday, 04/30.? She described the abdominal pain as bilateral, lower, 6/10, and progressive/severe since onset. However, when her stomach is touched she more so has epigastric pain. She reports a single episode of diarrhea with no further bowel movements since. She reports a maxT at home of 103? F. She denies previous history of small-bowel obstructions or gallstones. She does have a abdominal/pelvic surgical history including a partial hysterectomy, tubal ligation, exploratory laparotomy, and . Initial VS at presentation:? 99.9? F, HR 96, R 17, 130/77, and 97% on RA. ED workup showed:? WBC 16.2, no anemia, no significant electrolyte derangements, creatinine 0.56 and GFR >60, glucose 179, total bilirubin 7.0, AST 282, ALT 438, alk-phos 520, and lipase 510.? UA suspicious for UTI.? CT of the abdomen/pelvis showed a dilated biliary tree detailed above with distal stricture suspected, MRCP recommended. GI reviewed the patient's image with the radiologist, addended to read There is dilatation of the pancreatic duct diffusely measuring maximally 6 mm distally, possibility of a pancreatic head neoplasm is not excluded. Clinically this is of primary concern and contrast-enhanced MRI is recommended to assess. Review of Systems Review of Systems: All systems reviewed & are unremarkable except as noted in HPI and below PMFSH Past Medical History Medical History Endometriosis Colon cancer screening section wound complications Exploratory laparotomy scar Blood clot in abdominal vein Surgical History Surgical History History of tubal ligation H/O: hysterectomy Family History Family History Other Adopted Social History Social History Smoking packs per day: 1 Smoking cigarettes per day: 20.0 Years smoked: 40 Smoking pack-years: 40.00 Smoking status: Current every day smoker Tobacco type: cigarettes Second hand tobacco smoke exposure: Yes Alcohol intake: never Substance use: never Substance use type: does not use Lack of Transportation: No Lack of Food: Never True Current Housing: I Have Housing Concerned About Future Housing: No Difficulty Paying Gas/Electric Bills: No Difficulty Paying for Meds: No Currently Unemployed: No Education: High School Diploma/GED Difficulty w/ Childcare or Family Care: No Living arrangements: with family Gender identity (if verbalized by the patient): Female Spiritual care concerns: No Agree to blood products: Yes Meds Home Medications and Allergies Home Medications ?Medication ?Instructions ?Recorded ?Confirmed ?Type cholecalciferol (vitamin D3) 25 25 mcg PO DAILY 09/18/19 05/03/25 History mcg (1,000 unit) chewable tablet cyanocobalamin (vitamin B-12) 1,000 mcg PO DAILY 09/18/19 05/03/25 History 1,000 mcg capsule flaxseed oil 1,300 mg-omega 3,6,9 1 cap PO DAILY 11/01/19 05/03/25 History 845 mg-117 mg-117 mg capsule [id number]-[id number]-[id number] acid 200 1 tablet PO DAILY 11/01/19 05/03/25 History mcg-herbal no.293 37.5 mg chewable tablet (Alive Women's Gummy Vitamin) ascorbic acid (vitamin C) 500 mg 500 mg PO DAILY 03/23/20 05/03/25 History capsule biotin 300 mcg tablet 500 mcg PO DAILY 03/23/20 05/03/25 History vitamin E 200 unit capsule 200 unit PO DAILY 03/23/20 05/03/25 History lutein 20 mg capsule 20 mg PO DAILY 01/18/24 05/03/25 History rosuvastatin 5 mg tablet 5 mg PO DAILY 01/18/24 05/03/25 History wild yam 350 mg capsule 350 mg PO DAILY 05/03/25 05/03/25 History Allergies Allergy/AdvReac Type Severity Reaction Status Date / Time latex Allergy Intermediate Rash Verified 05/03/25 11:07 shellfish derived Allergy Mild Nausea Verified 05/03/25 11:07 hydrocodone (From Vicodin) AdvReac Mild Nausea Verified 05/03/25 11:07 morphine AdvReac Mild Nausea Verified 05/03/25 11:07 Exam Const: General: comfortable and no acute distress Other: , female, nontoxic appearance HENMT: Face/Nose/Sinus: Normal nares present Mouth: Yes dry mucous membranes Eyes: General: appearance normal, both eyes and all related structures Sclera: scleral abnormality (Mild icterus bilaterally) Pupils: Equal, round and reactive pupils present EOM: EOMs intact bilaterally Resp: Effort & Inspection: normal respiratory effort Auscultation: clear to auscultation bilaterally Cardio: Rate: regular rate Rhythm: regular rhythm Other: S1-S2 present without murmur, rub, ectopy GI: Other: + epigastric tenderness with palpation. Abdomen otherwise soft and nondistended. Normoactive bowel sounds in all quadrants. No hepatomegaly or splenomegaly appreciated. Skin: General skin exam: no rashes or lesions noted Wounds: no wounds Other: Mild jaundice noted, however patient does not appreciate any changes in skin color. Neuro: Speech: normal speech Motor exam (neuro): 5/5 motor strength present throughout Sensory Exam: normal sensation Other: A&O x4 Extrem: General: normal to inspection Psych: Mental Status: mental status grossly normal Affect: normal affect Other: Good insight and judgment, pleasant Assessment and Plan Assessment and plan (1) Transaminitis: Code(s): R74.01 - Elevation of levels of liver transaminase levels Status: Acute (2) Acute cholangitis: Code(s): K83.09 - Other cholangitis Status: Acute (3) Sepsis: Qualifiers: Sepsis type: sepsis due to unspecified organism Sepsis acute organ dysfunction status: without acute organ dysfunction Qualified Code(s): A41.9 - Sepsis, unspecified organism Code(s): A41.9 - Sepsis, unspecified organism Status: Acute Plan The patient was admitted to the hospital for suspected acute cholangitis given abdominal pain, fever (max T 102.4? F here, 103? F at home), and jaundice. Plan initially for EGD this afternoon, however after the GI provider reviewed the patient's imaging there was concern for double duct sign. Prompting an transfer to a tertiary care center for endoscopic ultrasound to establish a definitive diagnosis and for a urgent biliary drainage. She was started on Zosyn 3.375 Q6H, IV fluids, and antiemetics/analgesics p.r.n.. The patient met criteria for sepsis due to a heart rate greater than 90, WBC greater than 12, and fever. Initial lactic was 1.1 and blood cultures were obtained on 05/03. A right upper quadrant ultrasound is pending. Diet: Clear liquid GI Prophylaxis: n/a DVT Prophylaxis: SCDs Lines/Tubes: Peripheral IV Code Status: Full code Quality VTE Prophylaxis VTE prophylaxis: mechanical ordered Hospitalist [facility] Advance Care Plan I have confirmed that the patient's Advanced Care Plan is present, code status is documented, or surrogate decision maker is listed in patient medical record.: Yes Medication Reconciliation I have utilized all available resources to obtain, update and review the patients current medications (includes all prescriptions, OTC, herbals, cannabis, and nutritional supplements).: Yes
== END 2025-05-04 16:45 | disposition short-term general hospital (02) | DRG 439 ==
LOC: ANHED 14:38 → ANH3MEDSUR 15:19 → ANH3MED 15:25
PROVIDERS: Admitting Provider General Practice; Emergency Provider Emergency Medicine; PCP Physician Assistant; Visit Provider Student in an Organized Health Care Education/Training Program
DX: K85.10 Biliary acute pancreatitis without necrosis or infection (principal); K83.09 Other cholangitis; N39.0 Urinary tract infection, site not specified; F17.210 Nicotine dependence, cigarettes, uncomplicated
CPT/HCPCS: 36415; 74177; 76705; 80053; 81001; 83605; 83690; 83735; 85025; 87040; 87086; 96361; 96365; 96375; 96376; 99285; A9270; G0378; J1885; J2470; J2543; J3480; J7030; J7040; Q9967

== ENCOUNTER 2025-06-20 11:21 | Outpatient (CLI) | payer OTHER, SELFPAY ==
--- NOTE | ~2025-06-20 | MM_ITS ---
EXAMINATION: MM screening [facility] BI w nash HISTORY: Screening TECHNIQUE: Craniocaudal and mediolateral oblique 3-D tomosynthesis images were obtained and synthetic 2-D images were generated. CAD analysis was submitted and interpreted. COMPARISON: Comparison to multiple prior studies sequentially, with oldest reviewed study dated 09/09/2020. BREAST PARENCHYMAL COMPOSITION: Not dense: There are scattered areas of fibroglandular density. FINDINGS: There is no evidence of suspicious mass, calcification, or architectural distortion to suggest malignancy in either breast. There has been no suspicious interval change. IMPRESSION: 1. No mammographic evidence of malignancy. 2. Recommend routine screening mammography in one year. BI-RADS Category 1: Negative Reviewed, dictated and finalized at location B.
== END 2025-06-20 11:22 | disposition home or self-care (01) ==
PROVIDERS: PCP Physician Assistant; Visit Provider Obstetrics & Gynecology Gynecology
DX: Z12.31 Encounter for screening mammogram for malignant neoplasm of breast (principal)
CPT/HCPCS: 77063; 77067